=== PATIENT | female | born 1940 | race Caucasian/White ===

== ENCOUNTER 2017-02-21 11:14 | Inpatient (IN) ==
[2017-02-21] MEDS ORDERED: 0.9 % SODIUM CHLORIDE 2,000 ML IV ONE (12:34)
[2017-02-21] MEDS ORDERED: ONDANSETRON 4 MG/2 ML VIAL IV ONE (12:34)
[2017-02-21 13:30] LABS: Basophils # (Auto) 0 K/mcL (0.0-0.3); Basophils % (Auto) 0.3 % (0.0-2.0); Eosinophils # (Auto) 0.2 K/mcL (0.0-0.7); Granulocytes % (Auto) 82.1 % (38.0-78.0); Lymphocytes % (Auto) 10.6 % (15.5-49.0); Mean Corpuscular HGB Conc 32.9 g/dL (31.0-36.0); Mean Corpuscular Hemoglobin 29.6 pg (26.0-34.0); Monocytes # (Auto) 0.5 K/mcL (0.1-0.9); Platelet Count 231 K/mcL (140-440); RBC 3.47 M/mcL (4.00-5.20); Red Cell Distribution Width 16.9 % (11.5-14.5)
[2017-02-21 14:01] LABS: ALT/SGPT 32 U/l (0-40); Albumin 3.4 gm/dL (3.2-5.2); Albumin/Globulin Ratio 1.4 (1.0-2.3); Alkaline Phosphatase 121 U/L (39-117); Blood Urea Nitrogen 33 mg/dl (8-23); Magnesium 1.5 mg/dL (1.6-2.5)
--- NOTE | 2017-02-21 14:33 | Emergency Department Note ---
General Adult HPI - General Chief complaint: Blood Pressure Problem Stated complaint: "Dehydration" Time Seen by Provider: 02/21/17 11:20 Source: patient Mode of arrival: ambulatory Limitations: no limitations - History of Present Illness HPI Narrative: Dr. Grubbs, the dye winch operator sent over [id number] female from his clinic for acute renal failure. She has a one-week plus history of diarrhea for which she was seen twice at [facility]-they did a relatively extensive workup, I reviewed that note from 02/18/2017-diagnosed her with enteritis. The diarrhea is now been gone for 4 days; has not had a bowel movement since then and has been drinking plenty of fluids. She is not urinating as much and went to go see the doctor and was noted to have elevated creatinine and decreased blood pressure. Also complaining of sinus drainage, lethargy and weakness as well as decreased appetite - Related Data Home Medications Medication Instructions Recorded Confirmed dinh See Label Instructions PO .COMPLEX 01/24/17 02/21/17 buprenorphine 15 mcg/hour weekly 1 patch TRANSDERMA QWEEK 01/24/17 02/21/17 transdermal patch fexofenadine 180 mg tablet See Label Instructions PO .COMPLEX 01/24/17 02/21/17 fluticasone 50 mcg/actuation nasal 1 spray INTRANASAL BID g 01/24/17 02/21/17 spray,suspension losartan 100 mg tablet 100 mg PO QDAY 01/24/17 02/21/17 multivitamin 1 tab PO DAILY 01/24/17 02/21/17 oxycodone-acetaminophen 7.5 mg-325 1 tab PO Q4H PRN tab 01/24/17 02/21/17 mg tablet potassium chloride ER 10 mEq 10 meq PO QDAY 01/24/17 02/21/17 tablet,extended release gabapentin 300 mg capsule 300 mg PO BID cap 02/21/17 02/21/17 pantoprazole 40 mg tablet,delayed 40 mg PO QAM 90 Days 02/21/17 02/21/17 release Allergies Allergy/AdvReac Type Severity Reaction Status Date / Time naproxen [From Aleve] AdvReac Intermediate Swelling Verified 02/21/17 16:25 lactase [From Dairy Aid] AdvReac Verified 02/21/17 16:24 dairy AdvReac Mild Uncoded 02/21/17 16:26 Review of Systems All systems ED: reviewed and negative except as stated. Past Medical History - Past Medical History Attestation: Yes: The following information was validated with the patient. Medical history: Reports: arthritis, fibromyalgia, GERD, hypertension, renal disease, thyroid disease, other (Peptic ulcer disease, allergic rhinitis, B12 deficiency) Surgical history ED: Reports: appendectomy, cataract, cholecystectomy, hysterectomy, knee replacement (Bilateral), orthopedic, other (Low back), other (Stomach resection for ulcers) - Social History smoking status: Never smoker Alcohol use: Reports: None Physical Exam Thin frail appearing female no acute distress resting comfortably able to answer questions appropriately. Normocephalic atraumatic. Conjunctive are clear sclerae nonicteric. No nasal discharge or congestion. Oropharynx is pink and moist. Posterior pharynx is clear. Neck is supple without lymphadenopathy or thyromegaly. Heart is regular rate and rhythm no murmurs appreciated. Lungs are clear to auscultation bilaterally without wheezes rales rhonchi or respiratory distress. Abdomen soft nontender nondistended. No peritoneal signs or guarding. No pedal edema. +2 radial pulse. Alert oriented. No dysarthria or ataxia - General Limitations: no limitations Course Vital Signs Temperature 97.2 F 02/21/17 11:16 Pulse Rate 75 02/21/17 11:16 Respiratory Rate 18 02/21/17 11:16 Blood Pressure 103/69 02/21/17 11:16 Pulse Oximetry (%) 94 02/21/17 11:16 Temperature 98.4 F 02/22/17 06:37 Pulse Rate 71 02/22/17 04:00 Respiratory Rate 12 02/22/17 06:37 Blood Pressure 123/61 02/22/17 06:37 Pulse Oximetry (%) 94 02/22/17 06:37 Medical Decision Making - Lab Data Lab results reviewed: Yes I reviewed the patient's lab results. Result diagrams: 02/22/17 05:08 02/22/17 05:08 Lab Results 02/21/17 02/21/17 02/21/17 Range/Units 12:45 12:45 12:45 WBC 9.4 (4.5-11.0) K/mcL RBC 3.47 L (4.00-5.20) M/mcL Hgb 10.3 L (12.0-15.0) g/dL Hct 31.2 L (36.0-48.0) % MCV 90.0 (80.0-100.0) fL MCH 29.6 (26.0-34.0) pg MCHC 32.9 (31.0-36.0) g/dL RDW 16.9 H (11.5-14.5) % Plt Count 231 (140-440) K/mcL MPV 9.6 (7.4-10.4) fL Gran % 82.1 H (38.0-78.0) % Lymph % (Auto) 10.6 L (15.5-49.0) % [place] % (Auto) 5.0 (1.0-12.0) % Eos % (Auto) 2.0 (0.0-7.0) % Baso % (Auto) 0.3 (0.0-2.0) % Gran # 7.7 (1.8-8.0) K/mcL Lymph # (Auto) 1.0 L (1.5-4.8) K/mcL [place] # (Auto) 0.5 (0.1-0.9) K/mcL Eos # (Auto) 0.2 (0.0-0.7) K/mcL Baso # (Auto) 0 (0.0-0.3) K/mcL VBG Lactic Acid 1.1 (0.5-2.2) mmol/L Sodium 142 (133-145) mmol/L Potassium 3.7 (3.3-5.1) mmol/L Chloride 109 H (96-108) mmol/L Carbon Dioxide 17 L (22-30) mmol/L Anion Gap 16.0 (8-16) BUN 33 H (8-23) mg/dl Creatinine 2.4 H (0.6-1.1) mg/dl GFR Calculation 19 Glucose 85 (70-105) mg/dL Calcium 8.5 L (8.6-10.4) mg/dl Magnesium 1.5 L (1.6-2.5) mg/dL Total Bilirubin 0.2 (0.0-1.0) mg/dL AST 19 (0-37) U/l ALT 32 (0-40) U/l Alkaline Phosphatase 121 H (39-117) U/L NT-Pro-B Natriuret Pep 5850.0 H (0-450) pg/ml Total Protein 5.9 (5.9-8.4) gm/dL Albumin 3.4 (3.2-5.2) gm/dL Globulin 2.5 (2.2-3.7) gm/dL Albumin/Globulin Ratio 1.4 (1.0-2.3) Urine Eosinophils Ur Random Creatinine mg/dl U Random Total Protein mg/dl U [place] Prot/Creat Ratio mg:mg Ur Random Sodium mmol/L 02/21/17 02/21/17 Range/Units 14:46 14:46 WBC (4.5-11.0) K/mcL RBC (4.00-5.20) M/mcL Hgb (12.0-15.0) g/dL Hct (36.0-48.0) % MCV (80.0-100.0) fL MCH (26.0-34.0) pg MCHC (31.0-36.0) g/dL RDW (11.5-14.5) % Plt Count (140-440) K/mcL MPV (7.4-10.4) fL Gran % (38.0-78.0) % Lymph % (Auto) (15.5-49.0) % [place] % (Auto) (1.0-12.0) % Eos % (Auto) (0.0-7.0) % Baso % (Auto) (0.0-2.0) % Gran # (1.8-8.0) K/mcL Lymph # (Auto) (1.5-4.8) K/mcL [place] # (Auto) (0.1-0.9) K/mcL Eos # (Auto) (0.0-0.7) K/mcL Baso # (Auto) (0.0-0.3) K/mcL VBG Lactic Acid (0.5-2.2) mmol/L Sodium (133-145) mmol/L Potassium (3.3-5.1) mmol/L Chloride (96-108) mmol/L Carbon Dioxide (22-30) mmol/L Anion Gap (8-16) BUN (8-23) mg/dl Creatinine (0.6-1.1) mg/dl GFR Calculation Glucose (70-105) mg/dL Calcium (8.6-10.4) mg/dl Magnesium (1.6-2.5) mg/dL Total Bilirubin (0.0-1.0) mg/dL AST (0-37) U/l ALT (0-40) U/l Alkaline Phosphatase (39-117) U/L NT-Pro-B Natriuret Pep (0-450) pg/ml Total Protein (5.9-8.4) gm/dL Albumin (3.2-5.2) gm/dL Globulin (2.2-3.7) gm/dL Albumin/Globulin Ratio (1.0-2.3) Urine Eosinophils TNP Ur Random Creatinine 126.0 mg/dl U Random Total Protein 22 mg/dl U [place] Prot/Creat Ratio 0.17 mg:mg Ur Random Sodium 22 mmol/L - Radiology Data Radiology results reviewed: Yes I reviewed the patient's radiology results. Chest x-ray was read as normal Disposition Pt seen by LODGE ATTENDANT/PA only: No (MD only) Clinical Impression: Hypomagnesemia Acute kidney failure Qualifiers: Acute renal failure type: unspecified Qualified Code(s): N17.9 - Acute kidney failure, unspecified Summary: Found to have hypomagnesia anemia and acute renal injury likely from volume loss from the diarrhea she had earlier this week. As above I discussed the case with Dr. Grubbs as well as Dr. Baltazar-Dr. Baltazar the hospitalist agreed to accept patient for further evaluation and treatment in the hospital Disposition: Xfer As Inpt ([facility]) Condition: Fair
--- NOTE | 2017-02-21 14:43 | XRay Report ---
CLINICAL INFORMATION: History of heart failure TECHNIQUE: Upright PA and lateral chest x-ray COMPARISON: None. FINDINGS: Lungs are negative. No parenchymal infiltrate or mass. Heart size and vascularity within normal limits. No pulmonary edema. No pulmonary congestion. There is an indentation the right hemidiaphragm. No right pleural fluid. IMPRESSION: Negative PA and lateral chest x-ray Interpreted and Authenticated by: Guido Arnold 02/21/17
--- NOTE | 2017-02-21 15:32 | Internal Med History&Physical ---
Medical - H&P: HPI Patient information: Note initiated : 02/21/17 at 3:25 pm Service Date, if different from initiated Date: [] Patient: Mary Jeffrey a 76 y/o F admitted on for "Dehydration". Chief Complaint: [] History of present illness: Ms. Jeffrey is a 76 year old F with h/o gastric bypass, renal failure in recent pass presents to the ER here after being sent here from the nephrology clinic for low bp and elevated creatinine. The patient reports that she was admitted at [facility] nearly a month ago with symptoms of not feeling well and was diagnosed with renal failure She was treated with IV fluids at that point in time she also had an EGD scoping done for dysphagia which she states that she had esophageal dilation procedure done the patient for the last 1 week has not been feeling well note she had increased sinus discharge was diarrhea, according to the daughter altered mental status, decreased by mouth intake.the patient was seen at [facility] emergency room on 19 January where she was evaluated for this diarrhea. She was given some antinausea medications and sent home. At this facility she underwent a chest x-ray which was negative, labs which revealed anemia with hemoglobin of around 10.9 the urinalysis showed trace ketones and 2 RBCs. Her creatinine of 1.4 nd she also underwent a CT scan of the abdomen and pelvis with IV contrast, which revealed dilated bowel loops evidence of obstruction likely gastroenteritis. The patient was supposed to be followed up by nephrology in this clinic, the patient reports her diarrhea has resolved but she still feels weak and does not have much of an appetite. In the nephrology clinic according to the patient and her daughter the patient did not have a very good blood pressure,around 90 systolic, usually her blood pressure is much higher and she takes a blood pressure medication losartan. The mail clerk therefore decided to send the patient to the emergency room for further evaluation. in the emergency room the patient workup revealed hemoglobin of around 10 creatinine of 2.4,patient was given IV fluids, and admitted to the hospitalwith a diagnosis of acute renal failure. he patient denies any headache, visual changes, changes in hearing, any acute difficulty in swallowing, no chest pain or palpitations no shortness of breath, no abdominal pain, diarrhea has resolved, no urinary symptoms, no joint pains acute or any skin rashes, admits to fatigue and weakness. All systems: reviewed and no additional remarkable complaints except as stated ( as per HPI) Medical - H&P: PMH Medical history: Medical History (Last Updated 02/21/17 @ 16:47 by Yaron Grubbs MD) Nausea & vomiting (Chronic) Anemia associated with chronic renal failure (Chronic) Hypokalemia (Chronic) Chronic renal disease, stage III (Chronic) Chronic neck pain (Chronic) Anemia (Chronic) Lactose intolerance (Chronic) Fainting (Chronic) Dizziness (Chronic) SOB (shortness of breath) (Chronic) Vitamin B12 deficiency (Chronic) Osteoarthritis (Chronic) Depression (Chronic) Gastric outlet obstruction (Chronic) Hypothyroidism (Chronic) Abdominal pain (Chronic) Hemorrhoids (Chronic) Pancreatic disorder (Chronic) Back pain (Chronic) Renal failure (Chronic) Gastritis (Chronic) Fibromyalgia (Chronic) Back pain, chronic (Chronic) Peripheral neuropathy (Chronic) Delayed onset of urination (Chronic) Cervical radiculopathy (Chronic) Carpal tunnel syndrome (Chronic) Chronic idiopathic constipation (Chronic) Dysphagia (Chronic) History of left knee replacement (Chronic) Hx of ulcer disease (Chronic) Stomach ulcer (Chronic) Stomach pain (Chronic) Insomnia (Chronic) Indigestion (Chronic) Hypertension, essential (Chronic) Heartburn (Chronic) Fatigue (Chronic) Depressive disorder (Chronic) Muscle pain (Chronic) Bleeding tendency (Chronic) Arthritis (Chronic) Anxiety disorder (Chronic) Acid reflux (Chronic) Surgical history: Past Surgical History (Last Updated 01/24/17 @ 15:20 by Georgette Arellano) History of gastric surgery (Chronic) History of right knee joint replacement (Chronic) Hx of hysterectomy (Chronic) Hx of colonoscopy (Chronic ~2011) History of back surgery (Chronic) History of cholecystectomy (Chronic) Pertinent family history: Family History Mother Heart disease High blood pressure Father Heart disease High blood pressure Brother Heart disease Sister Heart disease Breast cancer Glaucoma Medical - H&P: Meds Home Medications Medication Instructions Recorded Confirmed Type benofiber See Label Instructions PO .COMPLEX 01/24/17 02/21/17 History buprenorphine 15 mcg/hour weekly 1 patch TRANSDERMA QWEEK 01/24/17 02/21/17 History transdermal patch fexofenadine 180 mg tablet See Label Instructions PO .COMPLEX 01/24/17 02/21/17 History fluticasone 50 mcg/actuation nasal 1 spray INTRANASAL BID g 01/24/17 02/21/17 History spray,suspension losartan 100 mg tablet 100 mg PO QDAY 01/24/17 02/21/17 History multivitamin 1 tab PO DAILY 01/24/17 02/21/17 History oxycodone-acetaminophen 7.5 mg-325 1 tab PO Q4H PRN tab 01/24/17 02/21/17 History mg tablet potassium chloride ER 10 mEq 10 meq PO QDAY 01/24/17 02/21/17 History tablet,extended release gabapentin 300 mg capsule 300 mg PO BID cap 02/21/17 02/21/17 History pantoprazole 40 mg tablet,delayed 40 mg PO QAM 90 Days 02/21/17 02/21/17 History release Allergies Allergy/AdvReac Type Severity Reaction Status Date / Time naproxen [From Aleve] AdvReac Intermediate Swelling Verified 02/21/17 16:25 lactase [From Dairy Aid] AdvReac Verified 02/21/17 16:24 dairy AdvReac Mild Uncoded 02/21/17 16:26 Medical - H&P: Exam - Constitutional Vitals: Temp Pulse Resp BP Pulse Ox 97.2 F 64 17 93/57 100 02/21/17 11:16 02/21/17 14:16 02/21/17 14:16 02/21/17 14:01 02/21/17 14:16 Exam: GENERAL: The patient is a well-developed, well-nourished in no apparent distress. Is alert and oriented x3. VITAL SIGNS: Reviewed and as noted elsewhere. HEENT: Head is normocephalic and atraumatic. Extraocular muscles are intact. Pupils are equal, round, and reactive to light. Nares appeared normal. Mouth appears any without lesions. Mucous membranes are dry. NECK: Normal to inspection, Supple, No lymphadenopathy or thyromegaly. LUNGS: Air entry equal on both sides, no wheezing, crackles or rhonchi noted. No accessory muscles of respiration HEART: Regular rate and rhythm normal, S1 and S2 heard, no Gallop, S3 or Rub Noted, No Gross murmur heard. ABDOMEN: Soft, nontender, and nondistended. Positive bowel sounds. No hepatosplenomegaly was noted. EXTREMITIES: No cyanosis, clubbing, rash, lesions or edema. NEUROLOGIC: Cranial nerves II through XII are grossly intact. Motor and Sensory System Grossly Intact PSYCHIATRIC: Normal affect, Normal Mood. Appropriate Behavior. SKIN: No ulceration or wounds noted, No jaundice, No rash noted. Medical - H&P: Reslt - Labs CBC & Chem 7: 02/21/17 12:45 02/21/17 12:45 Labs: Short CBC 02/21/17 Range/Units 12:45 WBC 9.4 (4.5-11.0) K/mcL Hgb 10.3 L (12.0-15.0) g/dL Hct 31.2 L (36.0-48.0) % Plt Count 231 (140-440) K/mcL BMP 02/21/17 12:45 Sodium 142 Potassium 3.7 Chloride 109 H Carbon Dioxide 17 L BUN 33 H Creatinine 2.4 H Glucose 85 Calcium 8.5 L Liver Function 02/21/17 Range/Units 12:45 Total Bilirubin 0.2 (0.0-1.0) mg/dL AST 19 (0-37) U/l ALT 32 (0-40) U/l Alkaline Phosphatase 121 H (39-117) U/L Albumin 3.4 (3.2-5.2) gm/dL Medical - H&P: A/P - Narrative A/P Narrative: A/P Acute Renal Failure: Creat upto 2.4, likely from dehdyratuion, compounded by recent use of NSAIDS as well as Iodine dye. She seems to be making urine at thsi time. Send ua for analysis, urine sodium, creat, urine prot creat ratio. IV fluids for now, get sonogram of kindeys if no improvement in renal function by tomorrow.Will consult nephrology if no improvement. anemia chr : due to iron def? follow up as outpatient with PCP Chr pain: continue home dosing of pain meds, pt self weaned off gabapentin. Hypomagnesemia, replace Elevated bnp: clinically patient is dry, CXR neg for chf, likely due to age and renal failure. HTN: BP on lower end, hold losartan DVT prophylaxis hep sq Diet Regular DNR Social History - Social History lives independently: Yes - Tobacco smoking status: Never smoker - Alcohol alcohol intake frequency: does not drink - Substance use substance use type: does not use
[2017-02-21] MEDS ORDERED: IPRATROPIUM/ALBUTEROL 3 ML AMPUL.NEB NEB PRN (16:22)
[2017-02-21] MEDS ORDERED: ACETAMINOPHEN 325 MG TABLET PO PRN (16:22)
[2017-02-21] MEDS ORDERED: NALOXONE HCL 0.4 MG/ML VIAL IV PRN (16:22)
[2017-02-21] MEDS ORDERED: ONDANSETRON 4 MG/2 ML VIAL IV PRN (16:22)
[2017-02-21] MEDS ORDERED: traZODone HCL 50 MG TABLET PO PRN (16:22)
[2017-02-21] MEDS: 0.9 % SODIUM CHLORIDE 1,000 ML IV SCH ×2 (18:07→21:04)
[2017-02-21 18:50] LABS: Appearance,Urine CLEAR; Bacteria,Urine 0 /hpf (0); Bilirubin,Urine NEG (NEG); Color,Urine YELLOW; Glucose,Urine (UA) NEGATIVE (NEG); Leukocyte Esterase,Urine NEG /uL (NEG); Mucus,Urine FEW /hpf (0); Nitrate,Urine NEG (NEG); Protein,Urine NEG (NEG); Specific Gravity,Urine 1.012 (1.000-1.035); Urine Blood 0.03 mg/dL (<0.03); Urine Hyaline Cast 5 /lpf (0-2); Urine RBC 1 /hpf (0-1); Urine Squamous Epithelial Cell 1 /hpf (0-4); Urine Transitional Epi Cells < 1 /hpf (0-2); Urine WBC 4 /hpf (0-4); Urobilinogen,Urine NEG (NEG)
[2017-02-21] MEDS: HEPARIN 5,000 UNIT/ML VIAL SQ SCH (20:09)
[2017-02-21] MEDS: oxyCODONE/APAP 5/325MG TABLET PO PRN (21:18)
[2017-02-21] MEDS: FLUTICASONE PROPIONATE SPRAY.NAS NS SCH (23:32)
[2017-02-21] MEDS: 0.9 % SODIUM CHLORIDE 10 ML SYRINGE IV SCH (23:33)
[2017-02-22] MEDS: 0.9 % SODIUM CHLORIDE 1,000 ML IV SCH (03:43)
[2017-02-22] MEDS: 0.9 % SODIUM CHLORIDE 10 ML SYRINGE IV SCH (05:45)
[2017-02-22 06:48] LABS: ALT/SGPT 23 U/l (0-40); Albumin 2.6 gm/dL (3.2-5.2); Albumin/Globulin Ratio 1.5 (1.0-2.3); Alkaline Phosphatase 87 U/L (39-117); Bilirubin,Direct < 0.2 mg/dL (0.0-0.3); Blood Urea Nitrogen 28 mg/dl (8-23); Gamma Glutamyl Transpeptidase 24 U/L (5-36); Magnesium 1.3 mg/dL (1.6-2.5)
[2017-02-22] MEDS: oxyCODONE/APAP 5/325MG TABLET PO PRN (07:08)
[2017-02-22 07:11] LABS: Basophils # (Auto) 0 K/mcL (0.0-0.3); Basophils % (Auto) 0.2 % (0.0-2.0); Eosinophils # (Auto) 0.2 K/mcL (0.0-0.7); Eosinophils % (Auto) 2.6 % (0.0-7.0); Lymphocytes # (Auto) 1.2 K/mcL (1.5-4.8); Lymphocytes % (Auto) 18.7 % (15.5-49.0); Mean Cell Volume 89.5 fL (80.0-100.0); Mean Corpuscular HGB Conc 33.5 g/dL (31.0-36.0); Mean Corpuscular Hemoglobin 29.9 pg (26.0-34.0); Monocytes # (Auto) 0.4 K/mcL (0.1-0.9); Monocytes % (Auto) 5.5 % (1.0-12.0); Platelet Count 172 K/mcL (140-440); RBC 2.69 M/mcL (4.00-5.20); Red Cell Distribution Width 17.2 % (11.5-14.5)
[2017-02-22] MEDS: HEPARIN 5,000 UNIT/ML VIAL SQ SCH (09:20)
[2017-02-22] MEDS: FLUTICASONE PROPIONATE SPRAY.NAS NS SCH (09:21)
--- NOTE | 2017-02-22 11:16 | Discharge Summary ---
Medical - DS: Prov Patient information: Note initiated : 02/22/17 at 11:12 am Service Date, if different from initiated Date: [] Patient: Mary Jeffrey a 76 y/o F admitted on 02/21/17 for "Dehydration"/ Hypomagnesemia. Chief Complaint: [] Date of admission: 02/21/17 16:17 Discharge date: 02/22/17 Primary care physician: Shantel Jara Admitting clinician: Rufino Baltazar Discharging clinician: Rufino Baltazar Medical - DS: Meds - Discharge Medications Active and Home Medications: Home Medications benofiber See Label Instructions PO .COMPLEX 01/24/17 [History Confirmed Last Taken Unknown] buprenorphine 15 mcg/hour weekly transdermal patch 1 patch TRANSDERMA QWEEK [History Confirmed 02/21/17 Last Taken Unknown] fexofenadine 180 mg tablet See Label Instructions PO .COMPLEX 01/24/17 [History Confirmed 02/21/17 Last Taken Unknown] fluticasone 50 mcg/actuation nasal spray,suspension 1 spray INTRANASAL BID g [History Confirmed 02/21/17 Last Taken Unknown] losartan 100 mg tablet 100 mg PO QDAY 01/24/17 [History Confirmed 02/21/17 Last Taken Unknown] multivitamin 1 tab PO DAILY 01/24/17 [History Confirmed 02/21/17 Last Taken Unknown] oxycodone-acetaminophen 7.5 mg-325 mg tablet 1 tab PO Q4H PRN tab 01/24/17 [ History Confirmed 02/21/17 Last Taken Unknown] potassium chloride ER 10 mEq tablet,extended release 10 meq PO QDAY 01/24/17 [ History Confirmed 02/21/17 Last Taken Unknown] gabapentin 300 mg capsule 300 mg PO BID cap 02/21/17 [History Confirmed Last Taken Unknown] pantoprazole 40 mg tablet,delayed release 40 mg PO QAM 90 Days 02/21/17 [ History Confirmed 02/21/17 Last Taken Unknown] Medical - DS: Hosp Hospital course: Ms. Jeffrey is a 76 year old F with h/o gastric bypass, renal failure in recent pass presents to the ER here after being sent here from the nephrology clinic for low bp and elevated creatinine. The patient reports that she was admitted at [facility] nearly a month ago with symptoms of not feeling well and was diagnosed with renal failure She was treated with IV fluids at that point in time she also had an EGD scoping done for dysphagia which she states that she had esophageal dilation procedure done the patient for the last 1 week has not been feeling well note she had increased sinus discharge was diarrhea, according to the daughter altered mental status, decreased by mouth intake.the patient was seen at [facility] emergency room on 19 January where she was evaluated for this diarrhea. She was given some antinausea medications and sent home. At this facility she underwent a chest x-ray which was negative, labs which revealed anemia with hemoglobin of around 10.9 the urinalysis showed trace ketones and 2 RBCs. Her creatinine of 1.4 nd she also underwent a CT scan of the abdomen and pelvis with IV contrast, which revealed dilated bowel loops evidence of obstruction likely gastroenteritis. The patient was supposed to be followed up by nephrology in this clinic, the patient reports her diarrhea has resolved but she still feels weak and does not have much of an appetite. In the nephrology clinic according to the patient and her daughter the patient did not have a very good blood pressure,around 90 systolic, usually her blood pressure is much higher and she takes a blood pressure medication losartan. The shot hole driller therefore decided to send the patient to the emergency room for further evaluation. in the emergency room the patient workup revealed hemoglobin of around 10 creatinine of 2.4,patient was given IV fluids, and admitted to the hospitalwith a diagnosis of acute renal failure. The patient was treated with IV fluids with good response, workup showed neg ua , FENA of 0.3, and Urine Na of 22 indicating pre renal cause. The patient was treated with IV fluids with good response overnight, her creatine improved to 1.9 from 2.4. This morning the patient was feeling much better, ambulatory and was tolerating po diet very well. She expressed her desire to go home. Her daughter also agreed that the patient appears back to baseline. She will be discharged home with follow up with her shot hole driller. She has been advised to keep self well hydrated. Hr Hb dropped to 8.0, which is around her baseline. Her drop from 10 to 8 is likely dilutional. there was no e/o GIB or bleeding from other site. Discharge diagnosis: acute renal failure. - Time Spent with Patient Total time spent providing and/or coordinating discharge services: Less than 30 minutes Medical - DS: Exam - Constitutional Vitals: Vital Signs Temp Pulse Resp BP Pulse Ox 02/22/17 06:37 98.4 F 12 123/61 94 02/22/17 04:00 97.1 F 71 14 117/67 97 02/21/17 23:46 97.9 F 78 18 112/66 97 02/21/17 20:00 98.5 F 81 18 121/77 95 02/21/17 16:22 96.9 F L 71 18 158/84 97 Intake and Output 02/21/17 02/22/17 02/22/17 21:59 05:59 13:59 Intake Total 2039 1398 / 1398 120 / 120 Output Total 100 / 100 1300 / 1300 250 / 250 Balance 1939 98 / 98 -130 / -130 Intake: IV 1939 998 / 998 Sodium Chloride 0.9% 1, 1939 998 / 998 000 ml @ 150 mls/hr IV . Q6H40M [facility] Rx#:[id number] Oral 100 / 100 400 / 400 120 / 120 Output: Void Amount 100 / 100 1300 / 1300 250 / 250 Other: Meal Dinner Percent of Meal Consumed 25% # Voids 2 1 Weight 128 lb Additional comments: Constitutional; Afebrile, cooperative, alert, not in distress. Eyes- No icterus, , No periorbital swelling Ears- Ext ear normal, hearing normal to conversation. Neck- Midline trachea, supple Respiratory system: Air Entry equal on both sides, No crackles or wheezing, no rhonchi. CVS- Rate rhythm regular, S1,S2 heard, no gallop, no rub. Abdomen- Soft nontender abdomen, no organomegaly, no tenderness, no guarding or rigidity, GEODETIC TECHNICIAN- AOOx3, moving all extremities, no gross focal deficit noted. Medical - DS: Data Labs on day of discharge: Labs from last 24 hours 02/22/17 02/22/17 02/21/17 05:08 05:08 18:25 WBC 6.4 RBC 2.69 L Hgb 8.0 L Hct 24.0 L MCV 89.5 MCH 29.9 MCHC 33.5 RDW 17.2 H Plt Count 172 MPV 9.8 Gran % 73.0 Lymph % (Auto) 18.7 [place] % (Auto) 5.5 Eos % (Auto) 2.6 Baso % (Auto) 0.2 Gran # 4.7 Lymph # (Auto) 1.2 L [place] # (Auto) 0.4 Eos # (Auto) 0.2 Baso # (Auto) 0 Sodium 144 Potassium 3.7 Chloride 115 H Carbon Dioxide 16 L Anion Gap 13.0 BUN 28 H Creatinine 1.9 H GFR Calculation 25 Glucose 80 Uric Acid 7.0 Calcium 7.5 L Phosphorus 3.7 Magnesium 1.3 L Total Bilirubin 0.2 Direct Bilirubin < 0.2 GGT 24 AST 15 ALT 23 Alkaline Phosphatase 87 Lactate Dehydrogenase 149 Total Protein 4.3 L Albumin 2.6 L Globulin 1.7 L Albumin/Globulin Ratio 1.5 Triglycerides 91 Urine Color Yellow Urine Appearance Clear Urine pH 5.0 Ur Specific [place] 1.012 Urine Protein Neg Urine Glucose (UA) Negative Urine Ketones Neg Urine Occult Blood 0.03 A Urine Nitrate Neg Urine Bilirubin Neg Urine Urobilinogen Neg Ur Leukocyte Esterase Neg Urine RBC 1 Urine WBC 4 Ur Squamous Epith Cells 1 Ur Transition Epith Cell < 1 Urine Bacteria 0 Hyaline Casts 5 H Urine Mucus Few Ur Culture Indicated? No Medical - DS: A/P - Patient/Caregiver Discharge Instructions Activity: increase activity as tolerated Diet: Regular Diet Additional Instructions: Keep self well hydrated. Follow up with your Kidney doctor in 1-2 weeks follow up with your PCP in 1 week Your PCP or shot hole driller should check your kidney function in 1-2 weeks to ensure that your kidney function is improving should you develop any concerning symptom, like fever, shortness of breath, diarrhea again, come back to the ER. You have low hemoglobin, make sure that your pcp is aware of same. If needed he may put you on iron supplements. - Follow up Plan Follow up with: Shantel Jara ARNP [Primary Care Provider] - Yaron Grubbs MD [Physician] - Disposition: Home, Self-Care Prognosis: Fair Rehab Potential: Fair I certify that the patient requires SNF services: No Overall status at discharge: patient is progressing back to baseline Medical - DS: Qual - VTE Deep Vein Thrombosis/Pulmonary Embolism Present on Admission: No
[2017-02-22] MEDS ORDERED: PNEUMOCOCCAL 23-VAL P-SAC VAC 0.5 ML VIAL IM ONE (12:00)
[2017-02-23] MEDS ORDERED: BUPRENORPHINE 15 MCG/HR TD SCH (10:00)
== END 2017-02-22 12:20 | disposition home or self-care (01) | DRG 684 ==
LOC: ED 11:14 → MEDSUR 16:17
PROVIDERS: ADMIT Internal Medicine; ATTEND Internal Medicine

== ENCOUNTER 2023-01-04 09:50 | Inpatient (IN) ==
[2023-01-04 10:43] LABS: POC Calcium, Ionized 1.1 (1.16-1.32); POC Creatinine 1.9 (0.6-1.2); POC Potassium 2.9 (3.3-5.1)
[2023-01-04] MEDS ORDERED: POTASSIUM CHLORIDE 20 MEQ TABLET PO ONE (11:01)
--- NOTE | 2023-01-04 11:05 | Cat Scan Report ---
INDICATION: AMS COMPARISON: Previous brain CT scan dated 09/13/2021. Previous MRI scan dated 06/18/2020 TECHNIQUE: Axial noncontrast-enhanced images through the brain. Sagittally and coronally reformatted images. FINDINGS: Cerebral hemispheres:No intracranial hemorrhage. No focal intra-axial attenuation abnormalities or localized mass effect. No midline shift. Periventricular white matter is unremarkable. There is age-appropriate cerebral atrophy. Brainstem and cerebellum:No intra-axial abnormality Extra-axial:No acute hemorrhage. No subdural or epidural hematoma. No subarachnoid hemorrhage. Basilar cisterns are normal Calvarial:No calvarial fracture. No lytic lesion Temporal bones are negative. No destructive lesions Soft tissue, orbits, sinuses:Orbits and visualized facial soft tissues and paranasal sinuses are negative IMPRESSION: Negative noncontrast enhanced brain CT scan. No interval change The exam was performed using radiation dose optimization techniques including, but not limited to, automated exposure control, adjustment of the mA and/or kV according to patient size and use of iterative reconstruction technique. Interpreted and Authenticated by: Guido Arnold 01/04/23
--- NOTE | 2023-01-04 11:23 | Emergency Department Note ---
HPI General Chief complaint: Altered Mental Status Stated complaint: Confusion Time Seen by Provider: 01/04/23 10:06 Source: EMS Mode of arrival: EMS Limitations: no limitations History of Present Illness HPI Narrative: Mary is an 82 yo female with h/o dementia who presents to the ER with new onset confusion. She called the police this morning because she felt that her daughter and son-in-law that she has lived with for 8 years have been trying to steal from her. The patient is alert and oriented to self, location and year. She notes that things have been missing from her room. Patient has a history of chronic pain from DJD and fibromyalgia. Family thought that she was having more neurological symptoms at the beginning of the month and brought her in to see her PCP Zaida Jara. They discussed titrating her off her oxycodone and gabapentin and she was started on buprenorphine. Previous oxycodone was 7.5 mg 5x/day + gabapentin 300 mg QID for many years. December 03 they started weaning her off her oxycodone and switching her to buprenorphine starting on December 10. She also stopped her gabapentin. Currently she is on 8 mg BID buprenorphine. H/O of gastric ulcers, with partial stomach resection. Has DJD with h/o 2 back surgeries. On chronic pain meds for many years. Daughter notes she was confused a year ago, thought people were stealing things from her. Apparently there is no known cause. Daughter states that she is more paranoid this time. The patient has no diagnosed psychiatric condition, but the daughter states that she had a similar episode over 30 years ago with severe paranoia. The patient states that she is fallen 3 times, but cannot clarify how recently. She notes that she has been dizzy since she "moved from [place]." She does not feel that the symptoms are new for her. Daughter notes that she has not been eating or drinking very much. Patient does have a history of chronic kidney disease and renal artery stenosis per chart review. Related Data Home Medications Medication Instructions Recorded Confirmed dinh See Rx Instructions PO .COMPLEX 01/24/17 01/01/23 guaifenesin 600 mg tablet, 600 mg PO BID PRN 06/04/19 01/01/23 extended release 12 hr (Mucinex) coenzyme Q10 10 mg capsule 10 mg PO ONCE 02/24/20 01/01/23 magnesium 200 mg tablet 200 mg PO QDAY 02/24/20 01/01/23 turmeric 400 mg capsule mg PO 07/17/21 01/01/23 calcium-mag oxide-vitamin D3 250 cap PO 12/12/21 01/01/23 mg-125 mg-200 unit capsule cholecalciferol (vitamin D3) 50 5,000 unit PO QDAY 12/12/21 01/01/23 mcg (2,000 unit) capsule fluticasone propionate 50 1 spray intranasal BID PRN 12/12/21 01/01/23 mcg/actuation nasal spray,suspension (Allergy Relief (fluticasone)) pantoprazole 40 mg tablet,delayed 40 mg PO QDAY 12/12/21 01/01/23 release Previous Rx's Medication Instructions Recorded denosumab 60 mg/mL subcutaneous 60 mg subcut [id number] #1 mL 11/23/20 syringe (Prolia) cyclobenzaprine 10 mg tablet See Rx Instructions .Route 04/17/22 .COMPLEX #90 tabs candesartan 4 mg tablet 4 mg PO QDAY #30 tabs 12/20/22 quetiapine 50 mg tablet 150 mg PO QHS #180 tabs 01/03/23 Allergies Allergy/AdvReac Type Severity Reaction Status Date / Time NSAIDS (Non-Steroidal Allergy Severe stomach Verified 12/25/22 14:57 Anti-Inflamma metoclopramide [From Reglan] Allergy Intermediate tics Verified 12/25/22 14:57 lactase [From Dairy Aid] AdvReac Unknown unknown Verified 12/25/22 14:57 naproxen [From Aleve] AdvReac Unknown Swelling Verified 12/25/22 14:57 dairy AdvReac Mild upset Uncoded 12/25/22 14:57 stomach Review of Systems ROS ROS Narrative: Narrative: All systems ED: reviewed and negative except as stated. PFSH Narrative Patient History Narrative: Narrative: Medical/Surgical/Family History All Active Problems (Updated 01/04/23 @ 14:10 by Loreta Potts PA-C) Altered mental status (Acute) Acute hypokalemia (Acute) Acute dehydration (Acute) DAYRON (acute kidney injury) (Acute) PVC (premature ventricular contraction) (Acute) Chronic pain (Acute) Renal artery stenosis (Acute) Right wrist pain (Acute) Vitamin D deficiency (Acute) Right shoulder pain (Acute) CHF (congestive heart failure) (Acute) Hypertension (Acute) Risk for falls (Acute) Dementia (Acute) Viral URI (Acute) Anemia due to stage 3a chronic kidney disease (Chronic) Chronic kidney disease (CKD) stage G3a/A1, moderately decreased glomerular filtration rate (GFR) between 45-59 mL/min/1.73 square meter and albuminuria creatinine ratio less than 30 mg/g (Chronic) Headache (Acute) Ventricular tachycardia (paroxysmal) (Acute) Urinary tract infection with hematuria (Acute) Shortness of breath on exertion (Acute) Urinary frequency (Acute) Confusion (Acute) Post covid-19 condition, unspecified (Acute) COVID-19 (Acute) Fatigue (Acute) Cerumen impaction (Acute) Sinusitis (Acute) Hyperparathyroidism (Chronic) Sinusitis (Acute) Otitis media (Acute) Carotid bruit (Acute) Vertigo (Acute) History of esophagogastroduodenoscopy (EGD) (Chronic 10/29/22) SVT (supraventricular tachycardia) (Acute) Urinary hesitancy (Acute) Disequilibrium (Acute) Confusion (Acute) History of echocardiogram (Chronic ~01/2019) History of stress test (Chronic ~01/2019) Hx of bone density study (Chronic ~2018) Hypertension (Chronic) Anxiety (Chronic) Gastritis (Chronic) Physical exam (Chronic) Sinusitis (Chronic) Frequency of urination (Chronic) Acute lymphadenitis of other sites (Chronic) Chest pressure (Chronic) Anemia, iron deficiency (Chronic) Other forms of dyspnea (Chronic) Osteoporosis (Chronic) Venous insufficiency (Chronic) Cervical lymphadenitis (Chronic) Labile hypertension (Chronic) Vitamin D deficiency (Chronic) Chronic neck pain (Chronic) Anemia (Chronic) Lactose intolerance (Chronic) Dizziness (Chronic) SOB (shortness of breath) (Chronic) Vitamin B12 deficiency (Chronic) Osteoarthritis (Chronic) Depression (Chronic) Gastric outlet obstruction (Chronic) Hypothyroidism (Chronic) Abdominal pain (Chronic) Hemorrhoids (Chronic) Pancreatic disorder (Chronic) Back pain (Chronic) Fibromyalgia (Chronic) Back pain, chronic (Chronic) Peripheral neuropathy (Chronic) Delayed onset of urination (Chronic) Cervical radiculopathy (Chronic) Carpal tunnel syndrome (Chronic) Chronic idiopathic constipation (Chronic) Dysphagia (Chronic) Hx of ulcer disease (Chronic) Stomach ulcer (Chronic) Insomnia (Chronic) Indigestion (Chronic) Heartburn (Chronic) Fatigue (Chronic) Depressive disorder (Chronic) Bleeding tendency (Chronic) Arthritis (Chronic) Anxiety disorder (Chronic) Acid reflux (Chronic) Medical History Abdominal pain Acid reflux Acute lymphadenitis of other sites CERVICAL Anemia Anemia, iron deficiency Anxiety Anxiety disorder Arthritis Back pain Back pain, chronic Bleeding tendency Carpal tunnel syndrome Cervical lymphadenitis Cervical radiculopathy Chest pressure Chronic idiopathic constipation Chronic neck pain COVID-19 Delayed onset of urination Depression Depressive disorder Dizziness Dysphagia Fatigue Fibromyalgia Frequency of urination Gastric outlet obstruction Gastritis Heartburn Hemorrhoids History of echocardiogram (~01/2019) MILD ATRIAL ENLARGEMENT History of stress test (~01/2019) CARDIAC, NORMAL Hx of bone density study (~2017) OSTEOPOROSIS Hx of ulcer disease Hypertension Hypothyroidism Indigestion Insomnia Labile hypertension Lactose intolerance Osteoarthritis Osteoporosis Other forms of dyspnea Pancreatic disorder Peripheral neuropathy Physical exam Sinusitis SOB (shortness of breath) Stomach ulcer Urinary frequency Venous insufficiency Vitamin B12 deficiency Vitamin D deficiency Surgical History History of back surgery History of cholecystectomy History of ERCP (~2015) History of esophagogastroduodenoscopy (EGD) (10/29/22) 09/23/20, 07/24/21, 01/09/22, 03/30/22 History of gastric surgery x2 History of intravascular stent placement (02/19/19) Dr. Crook History of left knee replacement History of right knee joint replacement Hx of colonoscopy (~2011) 2013 Hx of hysterectomy Family History Mother , , 96 Heart disease High blood pressure Father , , 80 Heart disease High blood pressure Brother Heart disease Sister , , 83 Heart disease Breast cancer Glaucoma Social History Alcohol Intake Frequency: does not drink Substance Use: does not use Exam Narrative Narrative: General: AOx3, but confused with regards to obtaining history, NAD, nontoxic appearing. Pleasant and conversant. HEENT: PERRL, EOMI, normocephalic. Dry mucous membranes. Normal facies and normal dentition. Chest: Symmetric, no pain to palpation Respiratory: Lungs clear to auscultation bilaterally. No respiratory distress. Unlabored breathing. Heart: Regular rate and rhythm, no murmurs/clicks/rubs. Abdomen: Non-tender, Non distended, normal bowel tones. No organomegaly. Extremities: Warm and well perfused. Bilateral 1+ pitting edema. DP 2+ bilaterally. Chronic venous stasis. Neuro: No focal deficits. Cranial nerves II-XII grossly normal. Skin: Warm dry, no rashes or lesions, no cyanosis. Psych: Anxious mood and affect. Tangential speech and difficulty giving a sustained history. Confused at baseline. Heme/Lymph: No abnormal bruising General Limitations: no limitations Course Course Course Narrative: 82-year-old female presents with confusion and paranoia Reevaluation(s) Reevaluation #1: Obtain basic labs, head CT Reevaluation #2: Head CT is negative. Laboratory work-up with a potassium of 2.9. Patient refused oral potassium so we will give 20 mEq IV potassium. Creatinine is 1.9 up from 1.2 on 12/17/2022, she has been given 1 L of IV normal saline for acute dehydration Reevaluation #3: Discussed with family and patient. Family members did not feel comfortable taking the patient home and the family does not feel safe discharging with her family members locally. I reached out to clinical social work to assist with disposition. In the meantime, the patient does have acute kidney injury with hypokalemia and I reached out to the hospitalist for admission. She will likely need stabilization with titration of her chronic pain medications as this may be driving some of her underlying confusion. Vital Signs Vital signs: Vital Signs Temperature 98.5 F 01/04/23 09:51 Pulse Rate 47 L 01/04/23 09:51 Respiratory Rate 18 01/04/23 09:51 Blood Pressure 164/71 01/04/23 09:51 Pulse Oximetry (%) 100 01/04/23 09:51 Oxygen Delivery Method Room Air 01/04/23 09:51 Temperature 98.5 F 01/04/23 09:51 Pulse Rate 88 01/04/23 14:01 Respiratory Rate 18 01/04/23 09:51 Blood Pressure 151/97 01/04/23 14:01 Pulse Oximetry (%) 100 01/04/23 14:01 Oxygen Delivery Method Room Air 01/04/23 09:51 [facility] MDM Narrative Medical decision making narrative: Dehydration Acute kidney injury Hypokalemia Altered mental status Head CT was negative. Patient is given 1 L of IV normal saline here and 20 mEq of IV potassium replacement. BLANCA Urbina was contacted and we discussed putting her back on her oxycodone, holding her gabapentin, and stopping her buprenorphine. Patient is comfortable staying for admission and stabilization and I have talked to Dr. Jim who has accepted the patient for admission. Lab Data 01/04/23 11:03 01/04/23 14:07 Labs: Lab Results 01/04/23 01/04/23 01/04/23 Range/Units 10:32 11:03 12:29 WBC 5.9 (4.5-11.0) K/mcL RBC 3.61 (3.59-5.38) M/mcL Hgb 10.8 L (11.2-15.7) g/dL Hct 33.2 L (34.1-44.9) % POC Hct 37.0 (36-48) MCV 92.0 (80.0-100.0) fL MCH 29.9 (26.0-34.0) pg MCHC 32.5 (31.0-36.0) g/dL RDW 15.6 H (11.5-14.5) % Plt Count 207 (140-440) K/mcL MPV 14.3 H (8.8-12.5) fL Immature Gran % (Auto) 0.3 (0.0-0.5) % Neut % (Auto) 79.6 H (38.0-78.0) % Lymph % (Auto) 13.4 L (15.5-49.0) % [place] % (Auto) 5.9 (1.0-12.0) % Eos % (Auto) 0.3 (0.0-7.0) % Baso % (Auto) 0.5 (0.0-2.0) % Lymph # (Auto) 0.79 L (1.50-4.80) K/mcL [place] # (Auto) 0.35 (0.10-0.90) K/mcL Eos # (Auto) 0.02 (0.00-0.70) K/mcL Baso # (Auto) 0.03 (0.00-0.30) K/mcL Immature Gran # 0.02 (0.00-0.05) K/mcl Absolute Neutrophils 4.70 (1.80-8.00) K/mcL POC Sodium 145 (133-145) POC Potassium 2.9 L* (3.3-5.1) POC Chloride 109 H (96-108) POC Total CO2 24.0 (22-30) POC Anion Gap 16.0 (8.0-16.0) POC BUN 24 H (6-20) POC Creatinine 1.9 H (0.6-1.2) POC Glucose 94 (70-105) POC WB Ioniz Calcium 1.10 L (1.16-1.32) Urine Color Yellow Urine Appearance Clear (Clear) Urine pH 5.0 (5.0-9.0) Ur Specific [place] 1.009 (1.000-1.035) Urine Protein Negative (Negative) mg/dL Urine Glucose (UA) Negative (Negative) mg/dL Urine Ketones Negative (Negative) mg/dL Urine Occult Blood 0.03 (Negative) mg/dL Urine Nitrate Negative (Negative) Urine Bilirubin Negative (Negative) mg/dL Urine Urobilinogen Negative mg/dL Ur Leukocyte Esterase Negative (Negative) /uL Urine RBC 1 (0-3) /hpf Urine WBC 2 (0-4) /hpf Ur Squamous Epith Cells 1 (0-4) /hpf Ur Transition Epith Cell < 1 (0-2) /hpf Urine Bacteria None (0) /hpf Hyaline Casts 15 H (0-2) /lph Granular Casts 8 H (0-0) /lph Urine Mucus Few A (None) /hpf Ur Culture Indicated? No Discharge Plan Patient/Caregiver Discharge Instructions Pt seen by BARREL TESTER/PA only: Yes Clinical Impression: Altered mental status, Acute hypokalemia, Acute dehydration, DAYRON (acute kidney injury) Patient Disposition: Xfer As Inpt ([facility]) Follow up with: Shantel Jara ARNP [Primary Care Provider] - Prescriptions: No Action guaifenesin [Mucinex] 600 mg tablet extended release 12hr 600 mg PO BID PRN cyclobenzaprine 10 mg tablet See Rx Instructions .ROUTE .COMPLEX Qty: 90 3RF Dose Instruction: TAKE HALF TABLET BY MOUTH AT BEDTIME Rx Instructions: TAKE TABLET BY MOUTH AT BEDTIME candesartan 4 mg tablet 4 mg PO QDAY Qty: 30 1RF quetiapine 50 mg tablet 150 mg PO QHS Qty: 180 1RF benofiber See Rx Instructions PO .COMPLEX Patient Comments: PO 10-12 tsp q day Rx Instructions: PO 10-12 tsp q day fluticasone propionate [Allergy Relief (fluticasone)] 50 mcg/actuation spray,suspension 1 spray INTRANASAL BID PRN cholecalciferol (vitamin D3) 50 mcg (2,000 unit) capsule 5,000 unit PO QDAY coenzyme Q10 10 mg capsule 10 mg PO ONCE magnesium 200 mg tablet 200 mg PO QDAY pantoprazole 40 mg tablet,delayed release (DR/EC) 40 mg PO QDAY calcium-mag oxide-vitamin D3 250-125-200 mg-mg-unit capsule PO turmeric 400 mg capsule PO Prolia 60 mg/mL syringe 60 mg SUB-Q [id number] Qty: 1 4RF
[2023-01-04] MEDS ORDERED: POTASSIUM CHLORIDE 20 MEQ in DEXTROSE 5% IN WATER 250 ML IV ONE (11:59)
[2023-01-04 12:34] LABS: Basophils # (Auto) 0.03 K/mcL (0.00-0.30); Basophils % (Auto) 0.5 % (0.0-2.0); Eosinophils # (Auto) 0.02 K/mcL (0.00-0.70); Eosinophils % (Auto) 0.3 % (0.0-7.0); Hematocrit 33.2 % (34.1-44.9); Hemoglobin 10.8 g/dL (11.2-15.7); Lymphocytes # (Auto) 0.79 K/mcL (1.50-4.80); Lymphocytes % (Auto) 13.4 % (15.5-49.0); Mean Corpuscular HGB Conc 32.5 g/dL (31.0-36.0); Mean Platelet Volume 14.3 fL (8.8-12.5); Monocytes # (Auto) 0.35 K/mcL (0.10-0.90); Monocytes % (Auto) 5.9 % (1.0-12.0); Neutrophils % (Auto) 79.6 % (38.0-78.0); Platelet Count 207 K/mcL (140-440); RBC 3.61 M/mcL (3.59-5.38); Red Cell Distribution Width 15.6 % (11.5-14.5); WBC 5.9 K/mcL (4.5-11.0)
[2023-01-04 13:26] LABS: Appearance,Urine CLEAR (Clear); Bilirubin,Urine Negative (Negative); Color,Urine YELLOW; Culture Indicated,Urine No; Glucose,Urine (UA) Negative (Negative); Ketones,Urine Negative (Negative); Leukocyte Esterase,Urine Negative /uL (Negative); Mucus,Urine FEW /hpf; Nitrate,Urine Negative (Negative); Protein,Urine Negative (Negative); Specific Gravity,Urine 1.009 (1.000-1.035); Urine Blood 0.03 mg/dL (Negative); Urine Granular Cast 8 /lph (0-0); Urine Hyaline Cast 15 /lph (0-2); Urine RBC 1 /hpf (0-3); Urine Squamous Epithelial Cell 1 /hpf (0-4); Urine Transitional Epi Cells < 1 /hpf (0-2); Urine WBC 2 /hpf (0-4); Urobilinogen,Urine Negative
--- NOTE | 2023-01-04 14:33 | Internal Med History&Physical ---
HPI History of Present Illness Patient information: Note initiated : 01/04/23 at 2:26 pm Service Date, if different from initiated Date: [] Patient: Mary Jeffrey a 82 y/o F admitted on for Confusion. Chief Complaint: [] History of present illness: Ms. Jeffrey is a 82 year old F Presents today because she called the police on her daughter and son-in-law. Per notes she thought they were trying to steal from her. She also noted things missing from her room when she says she needed help from the police. Patient seemed to have some more confusion earlier in the month and so her primary care provider did wean her off her oxycodone and gabapentin and switch her to buprenorphine. Most recently her PCP started reading weaning her off the buprenorphine. Per the family she did have an episode of severe paranoia a year ago and then years prior. She carries no psychiatric diagnosis. Case discussed in the ED between the ER provider and her PCP Zaida Jara and is decided to transition her back to her oxycodone stop the buprenorphine. As this is not likely or at least majority of symptoms are not likely related to the medication given the change in medication but no change in her psychological state. Patient is quite restless and per the daughter does not sleep very well. Per the patient she is hyperactive. Work-up in the ED revealed acute kidney injury and hypokalemia. Her urinalysis is positive for hyaline casts. Per the patient and family she does not drink much fluids or eat very much. She is on candesartan at home Hard to get much history from the patient as she seems to be a poor historian and sometimes scattered thinking. Review of Systems: Pertinent positives above. Denies headache/fever/chills/nausea/vomiting/chest or abdominal pain/cough/dyspnea/diarrhea. Remaining 10 point review of system reviewed negative PHYSICAL EXAM General: Alert, Awake, No acute Distress Eyes/N/T: EOMI, no scleral icterus, PERRL, MM Head/Neck: neck supple, full ROM, normocephalic atraumatic CV: RRR, No murmurs, normal s1/s2 Pulm: Clear b/l, no wheezing/rhonchi/rales, no respiratory distress Abd: soft, nontender, +BS x4 Ext: no clubbing/cyanosis/edema, nontender Neuro: Alert, CN 2-12 grossly intact, no focal deficits, moves all extremities, , sensations intact b/l upper/lower Psychiatric: Patient's thought process seems scattered Skin: warm/dry, normal color PFSH PFSH All Active Problems (Updated 01/04/23 @ 14:10 by Loreta Potts PA-C) Altered mental status (Acute) Acute hypokalemia (Acute) Acute dehydration (Acute) DAYRON (acute kidney injury) (Acute) PVC (premature ventricular contraction) (Acute) Chronic pain (Acute) Renal artery stenosis (Acute) Right wrist pain (Acute) Vitamin D deficiency (Acute) Right shoulder pain (Acute) CHF (congestive heart failure) (Acute) Hypertension (Acute) Risk for falls (Acute) Dementia (Acute) Viral URI (Acute) Anemia due to stage 3a chronic kidney disease (Chronic) Chronic kidney disease (CKD) stage G3a/A1, moderately decreased glomerular filtration rate (GFR) between 45-59 mL/min/1.73 square meter and albuminuria creatinine ratio less than 30 mg/g (Chronic) Headache (Acute) Ventricular tachycardia (paroxysmal) (Acute) Urinary tract infection with hematuria (Acute) Shortness of breath on exertion (Acute) Urinary frequency (Acute) Confusion (Acute) Post covid-19 condition, unspecified (Acute) COVID-19 (Acute) Fatigue (Acute) Cerumen impaction (Acute) Sinusitis (Acute) Hyperparathyroidism (Chronic) Sinusitis (Acute) Otitis media (Acute) Carotid bruit (Acute) Vertigo (Acute) History of esophagogastroduodenoscopy (EGD) (Chronic 10/29/22) SVT (supraventricular tachycardia) (Acute) Urinary hesitancy (Acute) Disequilibrium (Acute) Confusion (Acute) History of echocardiogram (Chronic ~01/2019) History of stress test (Chronic ~01/2019) Hx of bone density study (Chronic ~2018) Hypertension (Chronic) Anxiety (Chronic) Gastritis (Chronic) Physical exam (Chronic) Sinusitis (Chronic) Frequency of urination (Chronic) Acute lymphadenitis of other sites (Chronic) Chest pressure (Chronic) Anemia, iron deficiency (Chronic) Other forms of dyspnea (Chronic) Osteoporosis (Chronic) Venous insufficiency (Chronic) Cervical lymphadenitis (Chronic) Labile hypertension (Chronic) Vitamin D deficiency (Chronic) Chronic neck pain (Chronic) Anemia (Chronic) Lactose intolerance (Chronic) Dizziness (Chronic) SOB (shortness of breath) (Chronic) Vitamin B12 deficiency (Chronic) Osteoarthritis (Chronic) Depression (Chronic) Gastric outlet obstruction (Chronic) Hypothyroidism (Chronic) Abdominal pain (Chronic) Hemorrhoids (Chronic) Pancreatic disorder (Chronic) Back pain (Chronic) Fibromyalgia (Chronic) Back pain, chronic (Chronic) Peripheral neuropathy (Chronic) Delayed onset of urination (Chronic) Cervical radiculopathy (Chronic) Carpal tunnel syndrome (Chronic) Chronic idiopathic constipation (Chronic) Dysphagia (Chronic) Hx of ulcer disease (Chronic) Stomach ulcer (Chronic) Insomnia (Chronic) Indigestion (Chronic) Heartburn (Chronic) Fatigue (Chronic) Depressive disorder (Chronic) Bleeding tendency (Chronic) Arthritis (Chronic) Anxiety disorder (Chronic) Acid reflux (Chronic) Medical History Abdominal pain Acid reflux Acute lymphadenitis of other sites CERVICAL Anemia Anemia, iron deficiency Anxiety Anxiety disorder Arthritis Back pain Back pain, chronic Bleeding tendency Carpal tunnel syndrome Cervical lymphadenitis Cervical radiculopathy Chest pressure Chronic idiopathic constipation Chronic neck pain COVID-19 Delayed onset of urination Depression Depressive disorder Dizziness Dysphagia Fatigue Fibromyalgia Frequency of urination Gastric outlet obstruction Gastritis Heartburn Hemorrhoids History of echocardiogram (~01/2019) MILD ATRIAL ENLARGEMENT History of stress test (~01/2019) CARDIAC, NORMAL Hx of bone density study (~2017) OSTEOPOROSIS Hx of ulcer disease Hypertension Hypothyroidism Indigestion Insomnia Labile hypertension Lactose intolerance Osteoarthritis Osteoporosis Other forms of dyspnea Pancreatic disorder Peripheral neuropathy Physical exam Sinusitis SOB (shortness of breath) Stomach ulcer Urinary frequency Venous insufficiency Vitamin B12 deficiency Vitamin D deficiency Surgical History History of back surgery History of cholecystectomy History of ERCP (~2015) History of esophagogastroduodenoscopy (EGD) (10/29/22) 09/23/20, 07/24/21, 01/09/22, 03/30/22 History of gastric surgery x2 History of intravascular stent placement (02/19/19) Dr. Crook History of left knee replacement History of right knee joint replacement Hx of colonoscopy (~2011) 2014 Hx of hysterectomy Family History Mother , , 96 Heart disease High blood pressure Father , , 80 Heart disease High blood pressure Brother Heart disease Sister , , 83 Heart disease Breast cancer Glaucoma Social History lives independently: Yes marital status: alcohol intake frequency: does not drink substance use type: does not use MEDS/ALLERGIES Home Medications and Allergies Home Medications Medication Instructions Recorded Confirmed Type benofiber See Rx Instructions PO .COMPLEX 01/24/17 01/01/23 History guaifenesin 600 mg tablet, 600 mg PO BID PRN 06/04/19 01/01/23 History extended release 12 hr (Mucinex) coenzyme Q10 10 mg capsule 10 mg PO ONCE 02/24/20 01/01/23 History magnesium 200 mg tablet 200 mg PO QDAY 02/24/20 01/01/23 History denosumab 60 mg/mL subcutaneous 60 mg subcut [id number] #1 mL 11/23/20 01/01/23 Rx syringe (Prolia) turmeric 400 mg capsule mg PO 07/17/21 01/01/23 History calcium-mag oxide-vitamin D3 250 cap PO 12/12/21 01/01/23 History mg-125 mg-200 unit capsule cholecalciferol (vitamin D3) 50 5,000 unit PO QDAY 12/12/21 01/01/23 History mcg (2,000 unit) capsule fluticasone propionate 50 1 spray intranasal BID PRN 12/12/21 01/01/23 History mcg/actuation nasal spray,suspension (Allergy Relief (fluticasone)) pantoprazole 40 mg tablet,delayed 40 mg PO QDAY 12/12/21 01/01/23 History release cyclobenzaprine 10 mg tablet See Rx Instructions .Route 04/17/22 01/01/23 Rx .COMPLEX #90 tabs candesartan 4 mg tablet 4 mg PO QDAY #30 tabs 12/20/22 01/01/23 Rx quetiapine 50 mg tablet 150 mg PO QHS #180 tabs 01/03/23 Rx Allergies Allergy/AdvReac Type Severity Reaction Status Date / Time NSAIDS (Non-Steroidal Allergy Severe stomach Verified 12/25/22 14:57 Anti-Inflamma metoclopramide [From Reglan] Allergy Intermediate tics Verified 12/25/22 14:57 lactase [From Dairy Aid] AdvReac Unknown unknown Verified 12/25/22 14:57 naproxen [From Aleve] AdvReac Unknown Swelling Verified 12/25/22 14:57 dairy AdvReac Mild upset Uncoded 12/25/22 14:57 stomach EXAM Constitutional Vitals: Temp Pulse Resp BP Pulse Ox O2 Del Method 98.5 F 88 18 151/97 100 Room Air 01/04/23 09:51 01/04/23 14:01 01/04/23 09:51 01/04/23 14:01 01/04/23 14:01 01/04/23 09:51 DATA Data Completed and Pending Labs: Labs from last 24 hours 01/04/23 01/04/23 01/04/23 14:18 14:07 12:29 WBC RBC Hgb Hct POC Hct MCV MCH MCHC RDW Plt Count MPV Immature Gran % (Auto) Neut % (Auto) Lymph % (Auto) [place] % (Auto) Eos % (Auto) Baso % (Auto) Lymph # (Auto) [place] # (Auto) Eos # (Auto) Baso # (Auto) Immature Gran # Absolute Neutrophils POC Sodium Sodium Pending POC Potassium Potassium Pending POC Chloride Chloride Pending Carbon Dioxide Pending POC Total CO2 Anion Gap Pending POC Anion Gap POC BUN BUN Pending Creatinine Pending POC Creatinine GFR Calculation Pending Glucose Pending POC Glucose Calcium Pending POC WB Ioniz Calcium Phosphorus Pending Magnesium Pending Albumin Pending Urine Color Yellow Urine Appearance Clear Urine pH 5.0 Ur Specific [place] 1.009 Urine Protein Negative Urine Glucose (UA) Negative Urine Ketones Negative Urine Occult Blood 0.03 Urine Nitrate Negative Urine Bilirubin Negative Urine Urobilinogen Negative Ur Leukocyte Esterase Negative Urine RBC 1 Urine WBC 2 Ur Squamous Epith Cells 1 Ur Transition Epith Cell < 1 Urine Bacteria None Hyaline Casts 15 H Granular Casts 8 H Urine Mucus Few A Ur Culture Indicated? No 01/04/23 01/04/23 11:03 10:32 WBC 5.9 RBC 3.61 Hgb 10.8 L Hct 33.2 L POC Hct 37.0 MCV 92.0 MCH 29.9 MCHC 32.5 RDW 15.6 H Plt Count 207 MPV 14.3 H Immature Gran % (Auto) 0.3 Neut % (Auto) 79.6 H Lymph % (Auto) 13.4 L [place] % (Auto) 5.9 Eos % (Auto) 0.3 Baso % (Auto) 0.5 Lymph # (Auto) 0.79 L [place] # (Auto) 0.35 Eos # (Auto) 0.02 Baso # (Auto) 0.03 Immature Gran # 0.02 Absolute Neutrophils 4.70 POC Sodium 145 Sodium POC Potassium 2.9 L* Potassium POC Chloride 109 H Chloride Carbon Dioxide POC Total CO2 24.0 Anion Gap POC Anion Gap 16.0 POC BUN 24 H BUN Creatinine POC Creatinine 1.9 H GFR Calculation Glucose POC Glucose 94 Calcium POC WB Ioniz Calcium 1.10 L Phosphorus Magnesium Albumin Urine Color Urine Appearance Urine pH Ur Specific [place] Urine Protein Urine Glucose (UA) Urine Ketones Urine Occult Blood Urine Nitrate Urine Bilirubin Urine Urobilinogen Ur Leukocyte Esterase Urine RBC Urine WBC Ur Squamous Epith Cells Ur Transition Epith Cell Urine Bacteria Hyaline Casts Granular Casts Urine Mucus Ur Culture Indicated? A/P Narrative A/P Narrative: A: *DAYRON on CKD III: -Patient on ARB at home *Hypokalemia: *Paranoia: Patient has not previously been diagnosed with any psychiatric illness -has occurred in the past as well *Anxiety/Depression: on Seroquel *Chronic pain/fibromyalgia: Has been on oxycodone -Most recently switched to buprenorphine but now switching back to oxycodone by PCP *HTN: on ARB at home *Anemia, chronic: *GERD: * P: -IVF -Monitor potassium and check other electrolytes and replace as needed -Monitor urine output/renal function/fluid balance -Monitor BP, started on Norvasc while holding ARB -Switch back to oxycodone from buprenorphine -Telemetry psych consult - -Continue home Seroquel -Home medication reconciliation -PT/OT -Placement needs -ppx: Lovenox / home ppi Time Spent With Patient Time: Total time spent is greater than 50% in coordination of care (as documented) at patient's floor/unit and/or counseling patient: Initial: Total time with patient: 75 - 90 minutes
[2023-01-04 16:12] LABS: ALT/SGPT 45 U/L (<40); AST/SGOT 50 U/L (<32); Albumin 3.9 gm/dL (3.2-5.2); Alkaline Phosphatase 38 U/L (39-117); Bilirubin,Direct 0.2 mg/dL (<0.3); Bilirubin,Total 0.4 mg/dL (0.1-1.0); Blood Urea Nitrogen 18 mg/dL (8-23); Carbon Dioxide 23 mmol/L (22-30); Chloride 109 mmol/L (96-108); Glomerular Filtration Rate 32; Glucose 105 mg/dL (70-105); Phosphorous 2.5 mg/dL (2.5-4.5)
[2023-01-04] MEDS ORDERED: IPRATROPIUM/ALBUTEROL 3 ML AMPUL.NEB NEB PRN (17:55)
[2023-01-04] MEDS ORDERED: POTASSIUM CHLORIDE 40 MEQ in DEXTROSE 5% IN WATER 500 ML IV PRN (17:55)
[2023-01-04] MEDS ORDERED: MAGNESIUM SULFATE 2 GM/50 ML BAG IV PRN (17:55)
[2023-01-04] MEDS ORDERED: SENNOSIDES 1 TABLET PO PRN (17:55)
[2023-01-04] MEDS ORDERED: ONDANSETRON 4 MG/2 ML VIAL IV PRN (17:55)
[2023-01-04] MEDS ORDERED: POLYETHYLENE GLYCOL 3350 17 GM PACKET PO PRN (17:55)
[2023-01-04] MEDS ORDERED: POTASSIUM CHLORIDE 20 MEQ TABLET PO PRN ×2 (17:55)
[2023-01-04] MEDS ORDERED: ACETAMINOPHEN 325 MG TABLET PO PRN (17:55)
[2023-01-04] MEDS: amLODIPine 5 MG TABLET PO SCH (20:23)
[2023-01-04] MEDS: 0.9 % SODIUM CHLORIDE 1,000 ML IV SCH (20:24)
[2023-01-04] MEDS: 0.9 % SODIUM CHLORIDE 10 ML SYRINGE IV SCH (20:25)
[2023-01-04] MEDS: DOCUSATE SODIUM 100 MG CAPSULE PO SCH (20:25)
[2023-01-04] MEDS: oxyCODONE IR 5 MG TABLET PO PRN (23:00)
[2023-01-05] MEDS: 0.9 % SODIUM CHLORIDE 10 ML SYRINGE IV SCH ×3 (05:13→22:00)
[2023-01-05] MEDS: 0.9 % SODIUM CHLORIDE 1,000 ML IV SCH (06:20)
[2023-01-05 07:31] LABS: ALT/SGPT 37 U/L (<40); AST/SGOT 38 U/L (<32); Albumin 3.4 gm/dL (3.2-5.2); Alkaline Phosphatase 32 U/L (39-117); Bilirubin,Direct 0.3 mg/dL (<0.3); Bilirubin,Total 0.5 mg/dL (0.1-1.0); Blood Urea Nitrogen 13 mg/dL (8-23); Calcium 8.2 mg/dL (8.6-10.4); Carbon Dioxide 22 mmol/L (22-30); Chloride 109 mmol/L (96-108); Globulin 1.7 gm/dL (2.2-3.7); Glomerular Filtration Rate 52; Glucose 76 mg/dL (70-105); Lactate Dehydrogenase 389 U/L (135-225); Phosphorous 2.4 mg/dL (2.5-4.5); Triglycerides 65 mg/dL (<150); Uric Acid 8.9 mg/dL (2.5-8.0)
--- NOTE | 2023-01-05 08:12 | Internal Med Progress Note ---
SUBJECTIVE Subjective Patient information: Note initiated : 01/05/23 at 8:06 am Service Date, if different from initiated Date: [] Patient: Mary Jeffrey 82 y/o F admitted on 01/04/23 for Confusion. Chief Complaint: [] Interval history: History of present illness: Ms. Jeffrey is a 82 year old F Presents today because she called the police on her daughter and son-in-law. Per notes she thought they were trying to steal from her. She also noted things missing from her room when she says she needed help from the police. Patient seemed to have some more confusion earlier in the month and so her primary care provider did wean her off her oxycodone and gabapentin and switch her to buprenorphine. Most recently her PCP started reading weaning her off the buprenorphine. Per the family she did have an episode of severe paranoia a year ago and then years prior. She carries no psychiatric diagnosis. Case discussed in the ED between the ER provider and her PCP Zaida Jara and is decided to transition her back to her oxycodone stop the buprenorphine. As this is not likely or at least majority of symptoms are not likely related to the medication given the change in medication but no change in her psychological state. Patient is quite restless and per the daughter does not sleep very well. Per the patient she is hyperactive. Work-up in the ED revealed acute kidney injury and hypokalemia. Her urinalysis is positive for hyaline casts. Per the patient and family she does not drink much fluids or eat very much. She is on candesartan at home Hard to get much history from the patient as she seems to be a poor historian and sometimes scattered thinking. 01/05 No overnight event or new complaints. Patient just finished with telemetry psych. Renal function improving. Hypokalemia present hypomagnesemia present. Will replete and follow-up. Pending further psych Recs. Review of Systems: Pertinent positives above. Denies headache/fever/chills/nausea/vomiting/chest or abdominal pain/cough/dyspnea/diarrhea. Remaining 10 point review of system reviewed negative PHYSICAL EXAM General: Alert, Awake, No acute Distress Eyes/N/T: EOMI, no scleral icterus, Head/Neck: neck supple, full ROM, CV: RRR, No murmurs, Pulm: Clear b/l, no wheezing/rhonchi/rales, no respiratory distress Abd: soft, nontender, +BS x4 Ext: no clubbing/cyanosis/edema, nontender Neuro: Alert, no focal deficits, moves all extremities, , sensations intact b/l upper/lower Psychiatric: Skin: warm/dry, normal color Constitutional Vitals: Vital Signs Temp Pulse Resp BP Pulse Ox O2 Del Method 98.5 F 82 18 148/90 97 Room Air 01/05/23 04:00 01/05/23 04:00 01/05/23 04:00 01/05/23 04:00 01/05/23 04:00 01/05/23 04:00 Period Temp Pulse Resp BP Sys/[place] Pulse Ox O2 Del Method O2 Flow Rate Last 24 Hr 98.1 F-98.6 F 39-98 16-18 133-166/60-112 95-100 Room Air-Room Air Intake and Output 01/04/23 01/05/23 01/05/23 19:59 03:59 11:59 Intake Total 260 500 993 Output Total 1000 Balance 260 -500 993 Weight 59.557 kg 59.557 kg Intake & Output: Intake & Output 01/04/23 01/05/23 01/05/23 19:59 03:59 11:59 Intake Total 260 500 993 Output Total 1000 Balance 260 -500 993 Weight 59.557 kg 59.557 kg Intake: IV 260 993 Sodium Chloride 0.9% 1,000 ml @ 993 100 mls/hr IV .Q10H [facility] Rx#: [id number] Potassium Chloride 20 Meq In 260 Dextrose 5% in Water 250 ml @ 130 mls/hr IV ONCE ONE Rx#: [id number] Oral 500 Output: Void Amount 1000 Other: Urine Appearance Clear Urine Color Yellow OBJ DATA Labs 01/04/23 11:03 01/05/23 05:25 Labs: Abnormal Lab Results 01/05/23 01/04/23 01/04/23 05:25 15:10 12:29 Hgb Hct RDW MPV Neut % (Auto) Lymph % (Auto) Lymph # (Auto) POC Potassium Potassium 2.8 L* POC Chloride Chloride 109 H 109 H POC BUN Creatinine 1.5 H POC Creatinine Uric Acid 8.9 H Calcium 8.2 L POC WB Ioniz Calcium Phosphorus 2.4 L Magnesium 1.3 L Direct Bilirubin 0.3 H AST 38 H 50 H ALT 45 H Alkaline Phosphatase 32 L 38 L Lactate Dehydrogenase 389 H Total Protein 5.1 L Globulin 1.7 L 2.0 L Hyaline Casts 15 H Granular Casts 8 H Urine Mucus Few A 01/04/23 01/04/23 11:03 10:32 Hgb 10.8 L Hct 33.2 L RDW 15.6 H MPV 14.3 H Neut % (Auto) 79.6 H Lymph % (Auto) 13.4 L Lymph # (Auto) 0.79 L POC Potassium 2.9 L* Potassium POC Chloride 109 H Chloride POC BUN 24 H Creatinine POC Creatinine 1.9 H Uric Acid Calcium POC WB Ioniz Calcium 1.10 L Phosphorus Magnesium Direct Bilirubin AST ALT Alkaline Phosphatase Lactate Dehydrogenase Total Protein Globulin Hyaline Casts Granular Casts Urine Mucus Meds: Medications Acetaminophen (Acetaminophen 325 Mg Tablet) 650 mg PO Q6HP PRN; Protocol PRN Reason: Per Pain Protocol/Fever > 101 Last Admin: 01/04/23 22:56 Dose: 650 mg Albuterol/Ipratropium (Ipratropium/Albuterol 3 Ml Ampul.Neb) 3 ml NEB Q4HP PRN PRN Reason: Shortness Of Breath Amlodipine Besylate (Amlodipine 5 Mg Tablet) 2.5 mg PO DAILY [facility] Last Admin: 01/04/23 20:23 Dose: 2.5 mg Docusate Sodium (Docusate Sodium 100 Mg Capsule) 100 mg PO BID [facility] Last Admin: 01/04/23 20:25 Dose: Not Given Enoxaparin Sodium (Enoxaparin 40 Mg/0.4 Ml Syringe) 40 mg SQ DAILY [facility] Hydralazine HCl (Hydralazine 20 Mg/Ml Vial) 0 mg IV Q2HP PRN PRN Reason: Hypertension Potassium Chloride 40 meq/ (Dextrose) 520 mls @ 130 mls/hr IV UD PRN PRN Reason: Potassium < 3 Magnesium Sulfate (Magnesium Sulfate) 2 gm in 50 mls @ 50 mls/hr IV UD PRN PRN Reason: Magnesium </= 1.6 Sodium Chloride (Sodium Chloride 0.9%) 1,000 mls @ 100 mls/hr IV .Q10H [facility] Stop: 01/05/23 13:54 Last Admin: 01/05/23 06:20 Dose: 100 mls/hr Ondansetron HCl (Ondansetron 4 Mg/2 Ml Vial) 4 mg IV Q4HP PRN PRN Reason: Nausea And Vomiting Oxycodone HCl (Oxycodone Ir 5 Mg Tablet) 7.5 mg PO Q4HP PRN; Protocol PRN Reason: Per Pain Protocol Last Admin: 01/04/23 23:00 Dose: 7.5 mg Polyethylene Glycol (Polyethylene Glycol 3350 17 Gm Packet) 17 gm PO DAILYP PRN PRN Reason: Constipation Potassium Chloride (Potassium Chloride 20 Meq Tablet) 40 meq PO UD PRN PRN Reason: Potssium is 3-3.5 Potassium Chloride (Potassium Chloride 20 Meq Tablet) 40 meq PO UD PRN PRN Reason: Potassium < 3 Senna (Sennosides 1 Tablet) 2 tab PO DAILYP PRN PRN Reason: Constipation Sodium Chloride (0.9 % Sodium Chloride 10 Ml Syringe) 10 ml IV Q8 JERMAINE Last Admin: 01/05/23 05:13 Dose: Not Given A/P Narrative A/P Narrative: A: *DAYRON on CKD III: -Patient on ARB at home -improving *Hypokalemia/Hypomag: *Paranoia(h/o Bipolar d/o): Possibly Dementia -has occurred in the past as well *Anxiety/Depression: on Seroquel *Chronic pain/fibromyalgia: Has been on oxycodone -Most recently switched to buprenorphine but now switching back to oxycodone by PCP *HTN: on ARB at home *Anemia, chronic: *GERD: P: -IVF's d/c today -Monitor potassium and check other electrolytes and replace as needed -Monitor urine output/renal function/fluid balance -Monitor BP, started on Norvasc while holding ARB -Switch back to oxycodone from buprenorphine -Telemetry psych consult -Continue home Seroquel unless changed by tele-psych -PT/OT -CM for Placement needs -ppx: Lovenox / home ppi Time Spent With Patient Time: Total time spent is greater than 50% in coordination of care (as documented) at patient's floor/unit and/or counseling patient: Subsequent: Total time with patient: 50 - 65 Minutes QUALITY Stroke Symptom Onset Unknown: No VTE Deep Vein Thrombosis/Pulmonary Embolism Present on Admission: No
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
[2023-01-05] MEDS: amLODIPine 5 MG TABLET PO SCH ×2 (10:54→11:03)
[2023-01-05] MEDS: ENOXAPARIN 40 MG/0.4 ML SYRINGE SQ SCH (10:54)
[2023-01-05] MEDS: PANTOPRAZOLE 40 MG TABLET PO SCH (10:54)
[2023-01-05] MEDS: DOCUSATE SODIUM 100 MG CAPSULE PO SCH ×2 (10:54→20:40)
--- NOTE | 2023-01-05 12:40 | Discharge Summary ---
Discharge Provider Provider IMPORTANT FOLLOW-UP INFORMATION FOR PCP: -pt to f/u with PCP/neurology for dementia -telepsych decreased seroquel to 100mg qhs and added depakote 250mg qhs Patient information: Note initiated : 01/05/23 at 12:36 pm Service Date, if different from initiated Date: [] Patient: Mary Jeffrey 82 y/o F admitted on 01/04/23 for Confusion. Chief Complaint: [] Date of admission: 01/04/23 16:55 Discharge date: 01/07/23 Primary care physician: Shantel Jara Consults: 01/04/23 Consult to Physician [CONS] Stat Comment: Consulting Provider: Rosales Jim Reason For Exam: Physician to Consult 01/04/23 17:55 Consult to Physician [CONS] Routine Comment: Consulting Provider: [facility] Reason For Exam: Physician to Consult COURSE Hospital Course Hospital course: Interval history: History of present illness: Ms. Jeffrey is a 82 year old F Presents today because she called the police on her daughter and son-in-law. Per notes she thought they were trying to steal from her. She also noted things missing from her room when she says she needed help from the police. Patient seemed to have some more confusion earlier in the month and so her primary care provider did wean her off her oxycodone and gabapentin and switch her to buprenorphine. Most recently her PCP started reading weaning her off the buprenorphine. Per the family she did have an episode of severe paranoia a year ago and then years prior. She carries no psychiatric diagnosis. Case discussed in the ED between the ER provider and her PCP Zaida Jara and is decided to transition her back to her oxycodone stop the buprenorphine. As this is not likely or at least majority of symptoms are not likely related to the medication given the change in medication but no change in her psychological state. Patient is quite restless and per the daughter does not sleep very well. Per the patient she is hyperactive. Work-up in the ED revealed acute kidney injury and hypokalemia. Her urinalysis is positive for hyaline casts. Per the patient and family she does not drink much fluids or eat very much. She is on candesartan at home Hard to get much history from the patient as she seems to be a poor historian and sometimes scattered thinking. 6/3 No overnight event or new complaints. Patient just finished with telemetry psych. Renal function improving. Hypokalemia present hypomagnesemia present. Will replete and follow-up. Pending further psych Recs. 01/06 Patient pleasant and cooperative overnight per nursing notes with occasional forgetfulness. Telemetry psych added Zyprexa and lowered Seroquel today and we will follow-up again today. Says like the plan was to titrate up as I proximal and to DC Seroquel. 01/07 No overnight event or new complaints. Patient due for discharge. Telemetry psych settled on Seroquel 100 mg nightly and Depakote 250mg nightly. A: *DAYRON on CKD III: *Hypokalemia/Hypomag: *Paranoia(h/o Bipolar d/o), Jacob felt like this was Dementia with delirium *Anxiety/Depression: *Chronic pain/fibromyalgia: Has been on oxycodone -Most recently switched to buprenorphine but now switching back to oxycodone by PCP *HTN: on ARB at home *Anemia, chronic: *GERD: P: -decrease seroquel to 100 qhs, start depakote 250mg qhs per psych recs -f/u with pcp/neurology for dementia Discharge diagnosis: DAYRON hypokalemia hypomagnesemia paranoia dementia bipolar Secondary discharge diagnosis: Anxiety depression chronic pain hypertension up and anemia GERD Time Spent with Patient Time attestation: Total time spent providing and/or coordinating discharge services: Time spent: Greater than 30 minutes EXAM Constitutional Vitals: Temp Pulse Resp BP Pulse Ox O2 Del Method 98.5 F 82 18 148/90 97 Room Air 01/05/23 04:00 01/05/23 04:00 01/05/23 04:00 01/05/23 04:00 01/05/23 04:00 01/05/23 04:00 Discharge Data Data Completed and Pending Labs on day of discharge: Labs from last 24 hours 01/05/23 01/04/23 01/04/23 05:25 15:10 14:18 Sodium 144 145 Potassium 2.8 L* 3.5 Chloride 109 H 109 H Carbon Dioxide 22 23 Anion Gap 13.0 13.0 BUN 13 18 Creatinine 1.0 1.5 H GFR Calculation 52 32 Glucose 76 105 Uric Acid 8.9 H Calcium 8.2 L 9.0 Phosphorus 2.4 L 2.5 Magnesium 1.3 L TNP Total Bilirubin 0.5 0.4 Direct Bilirubin 0.3 H 0.2 GGT 12 AST 38 H 50 H ALT 37 45 H Alkaline Phosphatase 32 L 38 L Lactate Dehydrogenase 389 H Total Protein 5.1 L 5.9 Albumin 3.4 3.9 Globulin 1.7 L 2.0 L Albumin/Globulin Ratio 2.0 Triglycerides 65 Urine Color Urine Appearance Urine pH Ur Specific [place] Urine Protein Urine Glucose (UA) Urine Ketones Urine Occult Blood Urine Nitrate Urine Bilirubin Urine Urobilinogen Ur Leukocyte Esterase Urine RBC Urine WBC Ur Squamous Epith Cells Ur Transition Epith Cell Urine Bacteria Hyaline Casts Granular Casts Urine Mucus Ur Culture Indicated? 01/04/23 01/04/23 14:07 12:29 Sodium TNP Potassium TNP Chloride TNP Carbon Dioxide TNP Anion Gap TNP BUN TNP Creatinine TNP GFR Calculation TNP Glucose TNP Uric Acid Calcium TNP Phosphorus TNP Magnesium Total Bilirubin Direct Bilirubin GGT AST ALT Alkaline Phosphatase Lactate Dehydrogenase Total Protein Albumin TNP Globulin Albumin/Globulin Ratio Triglycerides Urine Color Yellow Urine Appearance Clear Urine pH 5.0 Ur Specific [place] 1.009 Urine Protein Negative Urine Glucose (UA) Negative Urine Ketones Negative Urine Occult Blood 0.03 Urine Nitrate Negative Urine Bilirubin Negative Urine Urobilinogen Negative Ur Leukocyte Esterase Negative Urine RBC 1 Urine WBC 2 Ur Squamous Epith Cells 1 Ur Transition Epith Cell < 1 Urine Bacteria None Hyaline Casts 15 H Granular Casts 8 H Urine Mucus Few A Ur Culture Indicated? No Discharge Plan Patient/Caregiver Discharge Instructions Activity: increase activity as tolerated Diet: Regular Diet Activity Restrictions/Additional Instructions: referral to see Neurology 5-14 days for dementia. Prescriptions: New divalproex 250 mg Tablet Extended Release 24 Hr 250 mg PO HS Qty: 30 0RF Continued guaifenesin [Mucinex] 600 mg tablet extended release 12hr 600 mg PO BID PRN (Reason: Nasal Congestion) cyclobenzaprine 10 mg tablet See Rx Instructions .ROUTE .COMPLEX Qty: 90 3RF Dose Instruction: TAKE HALF TABLET BY MOUTH AT BEDTIME Rx Instructions: TAKE TABLET BY MOUTH AT BEDTIME candesartan 4 mg tablet 4 mg PO QDAY Qty: 30 1RF benofiber See Rx Instructions PO .COMPLEX Patient Comments: PO 10-12 tsp q day Rx Instructions: PO 10-12 tsp q day fluticasone propionate [Allergy Relief (fluticasone)] 50 mcg/actuation spray,suspension 1 spray INTRANASAL BID PRN (Reason: Allergy Symptoms) cholecalciferol (vitamin D3) 50 mcg (2,000 unit) capsule 5,000 unit PO QDAY coenzyme Q10 10 mg capsule 10 mg PO ONCE magnesium 200 mg tablet 200 mg PO QDAY pantoprazole 40 mg tablet,delayed release (DR/EC) 40 mg PO QDAY calcium-mag oxide-vitamin D3 250-125-200 mg-mg-unit capsule PO DAILY turmeric 400 mg capsule PO Prolia 60 mg/mL syringe 60 mg SUB-Q [id number] Qty: 1 4RF Changed quetiapine 50 mg tablet 100 mg PO QHS Qty: 180 1RF Follow Up Plan Follow up with: Shantel Jara ARNP [Primary Care Provider] - Patient Disposition: Home, Self-Care Prognosis: Fair Overall status at discharge: patient is progressing back to baseline Discharge Orders: Discharge Order (Routine); Ordered 01/07/23 Ordered By: Rosales Jim [facility] VTE Deep Vein Thrombosis/Pulmonary Embolism Present on Admission: No
[2023-01-05] MEDS: oxyCODONE IR 5 MG TABLET PO PRN ×2 (16:46→20:40)
[2023-01-05] MEDS: OLANZapine 2.5 MG TABLET PO SCH (20:39)
[2023-01-05] MEDS: CYCLOBENZAPRINE 10 MG TABLET PO SCH (20:39)
[2023-01-05] MEDS: QUEtiapine 100 MG TABLET PO SCH (20:39)
[2023-01-05] MEDS ORDERED: QUEtiapine 100 MG TABLET PO SCH (21:00)
[2023-01-06 06:38] LABS: ALT/SGPT 30 U/L (<40); AST/SGOT 24 U/L (<32); Albumin 3.3 gm/dL (3.2-5.2); Albumin/Globulin Ratio 2.4 (1.0-2.3); Alkaline Phosphatase 30 U/L (39-117); Bilirubin,Direct < 0.2 mg/dL (0-0.3); Bilirubin,Total 0.3 mg/dL (0.1-1.0); Blood Urea Nitrogen 7 mg/dL (8-23); Calcium 7.9 mg/dL (8.6-10.4); Carbon Dioxide 25 mmol/L (22-30); Chloride 111 mmol/L (96-108); Globulin 1.4 gm/dL (2.2-3.7); Glomerular Filtration Rate 52; Glucose 89 mg/dL (70-105); Lactate Dehydrogenase 343 U/L (135-225); Triglycerides 75 mg/dL (<150); Uric Acid 7.3 mg/dL (2.5-8.0)
--- NOTE | 2023-01-06 08:00 | Internal Med Progress Note ---
SUBJECTIVE Subjective Patient information: Note initiated : 01/06/23 at 7:57 am Service Date, if different from initiated Date: [] Patient: Mary Jeffrey 82 y/o F admitted on 01/04/23 for Confusion. Chief Complaint: [] Interval history: History of present illness: Ms. Jeffrey is a 82 year old F Presents today because she called the police on her daughter and son-in-law. Per notes she thought they were trying to steal from her. She also noted things missing from her room when she says she needed help from the police. Patient seemed to have some more confusion earlier in the month and so her primary care provider did wean her off her oxycodone and gabapentin and switch her to buprenorphine. Most recently her PCP started reading weaning her off the buprenorphine. Per the family she did have an episode of severe paranoia a year ago and then years prior. She carries no psychiatric diagnosis. Case discussed in the ED between the ER provider and her PCP Zaida Jara and is decided to transition her back to her oxycodone stop the buprenorphine. As this is not likely or at least majority of symptoms are not likely related to the medication given the change in medication but no change in her psychological state. Patient is quite restless and per the daughter does not sleep very well. Per the patient she is hyperactive. Work-up in the ED revealed acute kidney injury and hypokalemia. Her urinalysis is positive for hyaline casts. Per the patient and family she does not drink much fluids or eat very much. She is on candesartan at home Hard to get much history from the patient as she seems to be a poor historian and sometimes scattered thinking. 01/05 No overnight event or new complaints. Patient just finished with telemetry psych. Renal function improving. Hypokalemia present hypomagnesemia present. Will replete and follow-up. Pending further psych Recs. 01/06 Patient pleasant and cooperative overnight per nursing notes with occasional forgetfulness. Telemetry psych added Zyprexa and lowered Seroquel today and we will follow-up again today. Says like the plan was to titrate up as I proximal and to DC Seroquel. Review of Systems: Pertinent positives above. Denies headache/fever/chills/nausea/vomiting/chest or abdominal pain/cough/dyspnea/diarrhea. PHYSICAL EXAM General: Alert, Awake, No acute Distress Eyes/N/T: EOMI, no scleral icterus, Head/Neck: neck supple, full ROM, CV: RRR, No murmurs, Pulm: Clear b/l, no wheezing/rhonchi/rales, no respiratory distress Abd: soft, nontender, +BS x4 Ext: no clubbing/cyanosis, trace b/l LE edema, nontender Neuro: Alert, no focal deficits, moves all extremities, , sensations intact b/l upper/lower Psychiatric: Skin: warm/dry, normal color Constitutional Vitals: Vital Signs Temp Pulse Resp BP Pulse Ox O2 Del Method 98.1 F 80 19 142/71 98 Room Air 01/06/23 04:28 01/06/23 04:28 01/06/23 04:28 01/06/23 04:28 01/06/23 04:28 01/06/23 04:28 Period Temp Pulse Resp BP Sys/[place] Pulse Ox O2 Del Method O2 Flow Rate Last 24 Hr 97.9 F-98.1 F 72-80 18-20 121-157/62-86 98-99 Nasal Cannula-Room Air Intake and Output 01/05/23 01/06/23 01/06/23 19:59 03:59 11:59 Intake Total 520 1800 Output Total 300 650 200 Balance -300 -130 1600 Weight 58.786 kg Intake & Output: Intake & Output 01/05/23 01/06/23 01/06/23 19:59 03:59 11:59 Intake Total 520 1800 Output Total 300 650 200 Balance -300 -130 1600 Weight 58.786 kg Intake: IV 520 1000 Sodium Chloride 0.9% 1,000 ml @ 1000 100 mls/hr IV .Q10H JERMAINE Rx#: [id number] Potassium Chloride 40 Meq In 520 Dextrose 5% in Water 500 ml @ 130 mls/hr IV UD PRN Rx#: [id number] Oral 800 Output: Void Amount 300 650 200 Other: Urine Appearance Clear Clear Urine Color Yellow Yellow Urine Odor Normal Normal OBJ DATA Labs 01/04/23 11:03 01/06/23 05:26 Labs: Abnormal Lab Results 01/06/23 01/05/23 01/04/23 05:26 05:25 15:10 Hgb Hct RDW MPV Neut % (Auto) Lymph % (Auto) Lymph # (Auto) POC Potassium Potassium 2.8 L* POC Chloride Chloride 111 H 109 H 109 H Anion Gap 7.0 L POC BUN BUN 7 L Creatinine 1.5 H POC Creatinine Uric Acid 8.9 H Calcium 7.9 L 8.2 L POC WB Ioniz Calcium Phosphorus 2.0 L 2.4 L Magnesium 1.3 L Direct Bilirubin 0.3 H AST 38 H 50 H ALT 45 H Alkaline Phosphatase 30 L 32 L 38 L Lactate Dehydrogenase 343 H 389 H Total Protein 4.7 L 5.1 L Globulin 1.4 L 1.7 L 2.0 L Albumin/Globulin Ratio 2.4 H Hyaline Casts Granular Casts Urine Mucus 01/04/23 01/04/23 01/04/23 12:29 11:03 10:32 Hgb 10.8 L Hct 33.2 L RDW 15.6 H MPV 14.3 H Neut % (Auto) 79.6 H Lymph % (Auto) 13.4 L Lymph # (Auto) 0.79 L POC Potassium 2.9 L* Potassium POC Chloride 109 H Chloride Anion Gap POC BUN 24 H BUN Creatinine POC Creatinine 1.9 H Uric Acid Calcium POC WB Ioniz Calcium 1.10 L Phosphorus Magnesium Direct Bilirubin AST ALT Alkaline Phosphatase Lactate Dehydrogenase Total Protein Globulin Albumin/Globulin Ratio Hyaline Casts 15 H Granular Casts 8 H Urine Mucus Few A Meds: Medications Acetaminophen (Acetaminophen 325 Mg Tablet) 650 mg PO Q6HP PRN; Protocol PRN Reason: Per Pain Protocol/Fever > 101 Last Admin: 01/04/23 22:56 Dose: 650 mg Albuterol/Ipratropium (Ipratropium/Albuterol 3 Ml Ampul.Neb) 3 ml NEB Q4HP PRN PRN Reason: Shortness Of Breath Amlodipine Besylate (Amlodipine 5 Mg Tablet) 5 mg PO DAILY [facility] Last Admin: 01/05/23 10:54 Dose: 5 mg Cyclobenzaprine HCl (Cyclobenzaprine 10 Mg Tablet) 10 mg PO HS [facility] Last Admin: 01/05/23 20:39 Dose: 10 mg Docusate Sodium (Docusate Sodium 100 Mg Capsule) 100 mg PO BID [facility] Last Admin: 01/05/23 20:40 Dose: 100 mg Enoxaparin Sodium (Enoxaparin 40 Mg/0.4 Ml Syringe) 40 mg SQ DAILY [facility] Last Admin: 01/05/23 10:54 Dose: 40 mg Hydralazine HCl (Hydralazine 20 Mg/Ml Vial) 0 mg IV Q2HP PRN PRN Reason: Hypertension Potassium Chloride 40 meq/ (Dextrose) 520 mls @ 130 mls/hr IV UD PRN PRN Reason: Potassium < 3 Last Infusion: 01/05/23 22:50 Dose: Infused Magnesium Sulfate (Magnesium Sulfate) 2 gm in 50 mls @ 50 mls/hr IV UD PRN PRN Reason: Magnesium </= 1.6 Last Infusion: 01/05/23 10:01 Dose: Infused Olanzapine (Olanzapine 2.5 Mg Tablet) 2.5 mg PO [facility] Last Admin: 01/05/23 20:39 Dose: 2.5 mg Ondansetron HCl (Ondansetron 4 Mg/2 Ml Vial) 4 mg IV Q4HP PRN PRN Reason: Nausea And Vomiting Oxycodone HCl (Oxycodone Ir 5 Mg Tablet) 7.5 mg PO Q4HP PRN; Protocol PRN Reason: Per Pain Protocol Last Admin: 01/05/23 20:40 Dose: 7.5 mg Pantoprazole Sodium (Pantoprazole 40 Mg Tablet) 40 mg PO QDAY [facility] Last Admin: 01/05/23 10:54 Dose: 40 mg Polyethylene Glycol (Polyethylene Glycol 3350 17 Gm Packet) 17 gm PO DAILYP PRN PRN Reason: Constipation Potassium Chloride (Potassium Chloride 20 Meq Tablet) 40 meq PO UD PRN PRN Reason: Potssium is 3-3.5 Potassium Chloride (Potassium Chloride 20 Meq Tablet) 40 meq PO UD PRN PRN Reason: Potassium < 3 Quetiapine Fumarate (Quetiapine 100 Mg Tablet) 100 mg PO [facility] Last Admin: 01/05/23 20:39 Dose: 100 mg Senna (Sennosides 1 Tablet) 2 tab PO DAILYP PRN PRN Reason: Constipation Sodium Chloride (0.9 % Sodium Chloride 10 Ml Syringe) 10 ml IV Q8 [facility] Last Admin: 01/05/23 22:00 Dose: Not Given A/P Narrative A/P Narrative: A: *DAYRON on CKD III: -Patient on ARB at home -improved *Hypokalemia/Hypomag: improved *Paranoia(h/o Bipolar d/o) vs Dementia with delirium: -has occurred in the past as well *Anxiety/Depression: on Seroquel *Chronic pain/fibromyalgia: Has been on oxycodone -Most recently switched to buprenorphine but now switching back to oxycodone by PCP *HTN: on ARB at home *Anemia, chronic: *GERD: P: -telepsych following, reeval today -replace phos -Monitor potassium and check other electrolytes and replace as needed -Monitor urine output/renal function/fluid balance -Monitor BP, started on Norvasc while holding ARB -Switched back to oxycodone from buprenorphine -seen by Telemetry psych started zyprexa and decrease seroquel -PT/OT -CM for Placement needs -ppx: Lovenox / home ppi Time Spent With Patient Time: Total time spent is greater than 50% in coordination of care (as documented) at patient's floor/unit and/or counseling patient: Subsequent: Total time with patient: 35 - 49 minutes QUALITY Stroke Symptom Onset Unknown: No VTE Deep Vein Thrombosis/Pulmonary Embolism Present on Admission: No
[2023-01-06] MEDS ORDERED: POTASSIUM PHOSPHATE 20 MEQ in DEXTROSE 5% IN WATER 250 ML IV ONE (08:01)
[2023-01-06] MEDS: NEUTRA PHOS 1 PACKET PO SCH ×2 (09:20→20:58)
[2023-01-06] MEDS: oxyCODONE IR 5 MG TABLET PO PRN ×3 (09:20→20:14)
[2023-01-06] MEDS: amLODIPine 5 MG TABLET PO SCH (09:20)
[2023-01-06] MEDS: ENOXAPARIN 40 MG/0.4 ML SYRINGE SQ SCH (09:20)
[2023-01-06] MEDS: PANTOPRAZOLE 40 MG TABLET PO SCH (09:21)
[2023-01-06] MEDS: DOCUSATE SODIUM 100 MG CAPSULE PO SCH ×2 (09:21→20:58)
[2023-01-06] MEDS: 0.9 % SODIUM CHLORIDE 10 ML SYRINGE IV SCH ×3 (09:21→20:59)
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
[2023-01-06] MEDS: CYCLOBENZAPRINE 10 MG TABLET PO SCH (20:58)
[2023-01-06] MEDS: OLANZapine 2.5 MG TABLET PO SCH (20:59)
[2023-01-06] MEDS: QUEtiapine 100 MG TABLET PO SCH (20:59)
[2023-01-07] MEDS: 0.9 % SODIUM CHLORIDE 10 ML SYRINGE IV SCH ×3 (04:10→20:28)
--- NOTE | 2023-01-07 07:20 | EKG ---
[facility] Test Date: 2023-01-04 Pat Name: Mary Jeffrey Department: ED Room: Gender: Female [employer]: ss : 1940 Requested By: Loreta Potts Order Number: [id number] Reading MD: Guido Tabor M.D. Measurements Intervals [place] Rate: 88 P: 9 WI: 166 QRS: -44 QRSD: 114 T: 93 QT: 407 QTc: 493 Interpretive Statements Sinus rhythm Paired ventricular premature complexes LEFT ANTERIOR FASCICULAR BLOCK Borderline prolonged QT interval Electronically Signed On 01-07-2023 7:20:17 PDT by Guido Tabor M.D. /store/M0/[id number]
[2023-01-07] MEDS: hydrALAZINE 20 MG/ML VIAL IV PRN ×2 (08:11→17:32)
[2023-01-07] MEDS: ENOXAPARIN 40 MG/0.4 ML SYRINGE SQ SCH (08:11)
[2023-01-07] MEDS: amLODIPine 5 MG TABLET PO SCH (08:12)
[2023-01-07] MEDS: DOCUSATE SODIUM 100 MG CAPSULE PO SCH ×2 (08:12→20:26)
[2023-01-07] MEDS: PANTOPRAZOLE 40 MG TABLET PO SCH (08:12)
[2023-01-07] MEDS: oxyCODONE IR 5 MG TABLET PO PRN ×2 (11:25→20:26)
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
[2023-01-07] MEDS: QUEtiapine 100 MG TABLET PO SCH (20:25)
[2023-01-07] MEDS: CYCLOBENZAPRINE 10 MG TABLET PO SCH (20:26)
[2023-01-07] MEDS ORDERED: DIVALPROEX SODIUM ER 250 MG TABLET PO SCH (21:00)
[2023-01-08] MEDS: 0.9 % SODIUM CHLORIDE 10 ML SYRINGE IV SCH (05:58)
[2023-01-08] MEDS: amLODIPine 5 MG TABLET PO SCH (08:50)
[2023-01-08] MEDS: PANTOPRAZOLE 40 MG TABLET PO SCH (08:50)
[2023-01-08] MEDS: ENOXAPARIN 40 MG/0.4 ML SYRINGE SQ SCH (08:50)
[2023-01-08] MEDS: DOCUSATE SODIUM 100 MG CAPSULE PO SCH (08:50)
[2023-01-08] MEDS: oxyCODONE IR 5 MG TABLET PO PRN (08:57)
== END 2023-01-08 15:42 | disposition home or self-care (01) | DRG 683 ==
LOC: ED 09:50 → MEDSUR 16:55
PROVIDERS: ADMIT Internal Medicine; ATTEND Internal Medicine